=== PATIENT | female | born 1935 | race Caucasian/White ===

== ENCOUNTER 2018-12-26 17:55 | Inpatient (IN) ==
--- NOTE | 2018-12-26 18:40 | ED ---
HPI General Chief complaint: Shortness of Breath/Dyspnea Stated complaint: Swollen Feet/SOB/Diarrhea Time Seen by Provider: 12/26/18 18:25 History of Present Illness HPI narrative: 83-year-old female with history of atrial fibrillation, diabetes , peripheral neuropathy, chronic UTIs, takes ciprofloxacin 250 mg chronically, presents with her mother for evaluation. The patient and daughter report that all day today the patient has been fatigued, lethargic, just sleeping for most of the day. She has been having some dyspnea. She reports that she has chronic neuropathy in her feet and it seems to be worse today as well. Her daughter is concerned that she could have UTI. She reports that she has had 3 loose stools today but no profuse diarrhea. She is denying headache, blurred vision, dizziness, lightheadedness, nausea, vomiting, chest pain, cough, congestion, flank pain, objective fevers, myalgias, palpitations. She follows with the [facility]. No other complaints at this time. Related Data Home Medications Medication Instructions Recorded Confirmed alendronate 70 mg PO QWEEK 12/26/18 12/26/18 aspirin [Aspir-Low] 81 mg PO DAILY 12/26/18 12/26/18 atorvastatin 40 mg PO DAILY 12/26/18 12/26/18 cholecalciferol (vitamin D3) 5,000 unit PO DAILY 12/26/18 12/26/18 [Vitamin D3] ciprofloxacin HCl 250 mg PO DAILY 12/26/18 12/26/18 digoxin 0.125 mg PO DAILY 12/26/18 12/26/18 ferrous sulfate 325 mg PO DAILY 12/26/18 12/26/18 furosemide 20 mg PO DAILY 12/26/18 12/26/18 gabapentin 800 mg PO BID 12/26/18 12/26/18 leflunomide 20 mg PO DAILY 12/26/18 12/26/18 levothyroxine 150 mcg PO DAILY 12/26/18 12/26/18 losartan 25 mg PO DAILY 12/26/18 12/26/18 metformin 500 mg PO BID 12/26/18 12/26/18 metoprolol succinate 25 mg PO DAILY 12/26/18 12/26/18 omeprazole 40 mg PO DAILY 12/26/18 12/26/18 oxybutynin chloride 5 mg PO DAILY 12/26/18 12/26/18 prednisone 5 mg PO DAILY 12/26/18 12/26/18 ranitidine HCl 150 mg PO DAILY 12/26/18 12/26/18 temazepam 15 mg PO HS PRN 12/26/18 12/26/18 warfarin 0.5 mg PO DAILY 12/26/18 12/26/18 warfarin 3 mg PO DAILY 12/26/18 12/26/18 Allergies Allergy/AdvReac Type Severity Reaction Status Date / Time ketorolac Allergy Severe Hives Verified 12/27/18 00:55 piperacillin Allergy Severe Anaphylaxis Verified 12/27/18 00:55 tazobactam Allergy Severe Anaphylaxis Verified 12/27/18 00:55 MRI PRECAUTION AdvReac Severe BLADDER Uncoded 03/07/14 12:12 STIM - SEE COMMENT Review of Systems ROS: all other systems reviewed are negative [facility] Medical History Medical History Atrial fibrillation (Acute) CHF (congestive heart failure) (Acute) Chronic UTI (Acute) Diabetes mellitus, type 2 (Acute) GERD (gastroesophageal reflux disease) (Acute) History of hysterectomy (Acute) Hypertension (Acute) Hypothyroidism (Acute) Myocardial infarct (Acute) Neuropathy (Acute) Surgical History Surgical History H/O cardiac catheterization (Acute) History of appendectomy (Acute) History of tonsillectomy (Acute) Hx of heart artery stent (Acute) Status post implantation of urinary electronic stimulator device (Acute) Family History Family History Other Family history unknown Social History Social History Smoking Status: Former smoker How Often Do You Have a Drink Containing Alcohol: Never Recent Travel in [facility] within the Last 8 Weeks: No Recent Out of Country Travel within the Last 8 Weeks: No Exam Narrative Exam Narrative: GENERAL: Pleasant well-developed well-nourished female no acute distress answering questions appropriately. Alert and oriented x3. SKIN: Warm and dry. There is a little of nonspecific skin redness noted to the pretibial regions bilaterally. No erythema or petechiae or wheals or open wounds. HEAD: Atraumatic. Normocephalic. EYES: Pupils equal and round. No scleral icterus. No injection or drainage. ENT: No nasal bleeding or discharge. Mucous membranes pink and moist. NECK: Trachea midline. No JVD. CARDIOVASCULAR: Regular rate and rhythm. No murmur appreciated. RESPIRATORY: No accessory muscle use. Clear to auscultation. Breath sounds equal bilaterally. GASTROINTESTINAL: Abdomen soft, non-tender, nondistended. Hepatic and splenic margins not palpable. MUSCULOSKELETAL: No obvious deformities. No clubbing. No cyanosis. No edema. NEUROLOGICAL: Awake and alert. No obvious cranial nerve deficits. Motor grossly within normal limits. Normal speech. Course Initial Documented Vital Signs Temperature 97.3 F L 12/26/18 18:08 Pulse Rate 102 H 12/26/18 18:08 Respiratory Rate 18 12/26/18 18:08 Blood Pressure 122/56 L 12/26/18 18:08 Pulse Oximetry 97 12/26/18 18:08 Last Documented Vital Signs Temperature 97.3 F L 12/26/18 18:08 Pulse Rate 80 12/26/18 22:03 Respiratory Rate 18 12/26/18 22:03 Blood Pressure 174/78 H 12/26/18 22:03 Pulse Oximetry 94 L 12/26/18 22:03 Medical Decision Making AUDELIA Attestation AUDELIA supervised visit: Yes Attestation: I, Dr. Woodard, have reviewed the advance practice practitioner's documentation and am in agreement, met with the patient face to face, made the diagnosis, and the medical decision making was done by me. The patient was initially evaluated by nathalia William PA. Please see their complete history and physical. *My assessment and Findings: The patient presents with a history of feeling poorly throughout the day today. She reports having generalized weakness and lethargy that began today. She reports having generalized body aches. She reports that over the last week she has had some head congestion and clear rhinorrhea. She reports that she has been using a nasal spray to try to relieve the congestion. She denies having any chest congestion or cough. She reports that earlier today she did have some chest pressure and shortness of breath that has now resolved. Her daughter reports that she also noted that she had some lower extremity edema that was new today and some redness of her legs which seems to be resolving since she has been in the emergency department. She denies having any itching associated with this redness. She denies having any fevers. On review of systems, the patient's examination is remarkable for patchy areas of erythema of the skin of the lower extremities which is reportedly improving according to her daughter. The patient's left leg is slightly larger than the right, which according to the daughter is new. The patient is on Coumadin related to a history of atrial fibrillation. She denies any prior history of DVT. She reports that in 2001 she did have a myocardial infarction. She reports that she has had stents placed in the past, however she is unsure how many. She cannot recall when she last had a stress test. During the course of the patient's emergency department visit, the patient's history, examination, and differential diagnosis were reviewed with the patient. The patient was placed on a alarm security or surveillance monitor with oximetry and frequent blood pressure monitoring. The patient had IV access obtained and blood work sent for analysis. The patient was initially provided normal saline IV fluids. The patient's diagnostic studies were reviewed and remarkable for a white count of 18, hemoglobin 12.4, platelets 285 with 79.2 neutrophils, PT PTT within normal limits, INR is only 1.1. Chemistry is remarkable for a lactic acid within normal limits at 1.8, ALT 56, cardiac enzymes within normal limits. Digoxin level is 0.9. The patient's chest x-ray reveals cardiomegaly with minimal basilar atelectasis or scarring. No other acute abnormality. Urinalysis revealed turbid urine, 100 protein, trace ketones, small blood, positive nitrate, large leukocyte esterase, 7 RBCs, many white blood cell clumps , innumerable WBCs, moderate bacteria, culture indicated. The patient was given Rocephin 1 g IV. An ultrasound of the left lower extremity revealed no evidence of DVT. CTA to rule out PE showed no evidence of pulmonary embolism, moderate to severe coronary artery calcifications. No lung consolidation, minimal basilar atelectasis or scarring. The patient's results were discussed with the patient, including the plan of care. I explained that further testing and/ or monitoring is indicated based on the patient's history, examination, and/ or laboratory findings. Therefore, I recommended admission for additional evaluation. The patient expressed understanding and was agreeable with this plan. The patient was admitted to the hospital in guarded condition and sent to a bed under the care of the [facility] service. MDM Narrative Medical decision making narrative: The patient was placed on ECG monitoring pulse oximetry. IV established, lab work, chest x-ray, urinalysis obtained. Lab work is notable for WBC count of 18 with 12% band neutrophils a BUN of 21, creatinine 1.32, GFR 39, glucose 162. Lactic acid is 1.8. Chest x-ray revealed cardiomegaly. The patient was cautiously hydrated with 500 mL of normal saline. Urinalysis is consistent with UTI, IV Rocephin initiated. The patient is allergic to Pipracil and blood per chart review she has had Rocephin in the past. The patient's INR is 1.1, subtherapeutic, she is here with dyspnea and she is tachycardic and therefore a CT pulmonary antrum was obtained revealing no evidence of pulmonary embolism. Left lower extremity ultrasound was also obtained revealing no evidence of DVT. The patient does meet sepsis criteria with urinary source. She will be admitted for further treatment. Medical Screen Exam Complete: Yes Emergency Medical Condition: Yes Differential Diagnosis Differential Diagnosis: UTI, sepsis, pneumonia, dehydration, failure to thrive, electrolyte abnormality Lab Data Result diagrams: 12/26/18 18:51 12/26/18 18:51 Lab Results 12/26/18 12/26/18 12/26/18 Range/Units 18:51 18:51 18:51 WBC 18.0 H (4.0-11.0) th/mm3 RBC 4.33 (4.00-5.30) mil/mm3 Hgb 12.4 (11.6-15.3) gm/dL Hct 38.0 (35.0-46.0) % MCV 87.6 (80.0-100.0) fL MCH 28.7 (27.0-34.0) pg MCHC 32.8 (32.0-36.0) % RDW 20.9 H (11.6-17.2) % Plt Count 285 (150-450) th/mm3 MPV 11.1 H (7.0-11.0) fL Prelim Diff (Auto) Slide review pending Neut % (Auto) 79.2 H (16.0-70.0) % Lymph % (Auto) 10.8 (9.0-44.0) % Cross % (Auto) 7.3 (0.0-8.0) % Eos % (Auto) 1.4 (0.0-4.0) % Baso % (Auto) 1.3 (0.0-2.0) % Neut # (Auto) 14.3 H (1.8-7.7) th/mm3 Lymph # (Auto) 2.0 (1.0-4.8) th/mm3 Cross # (Auto) 1.3 H (0.0-0.9) th/mm3 Eos # (Auto) 0.2 (0.0-0.4) th/mm3 Baso # (Auto) 0.2 (0.0-0.2) th/mm3 WBC Differential Manual diff final Seg Neuts % (Manual) 65 (16-70) % Band Neuts % (Manual) 12 H (0-6) % Lymphocytes % (Manual) 12 (9-44) % Monocytes % (Manual) 11 H (0-8) % Abs Neuts (Manual) 13.9 H (1.8-7.7) th/mm3 Differential Comment . Platelet Estimate Normal (Normal) Platelet Morphology Normal (Normal) PT 10.7 (9.8-11.6) sec INR 1.1 Ratio APTT 25.2 (23.4-31.7) sec Sodium 139 (136-145) meq/L Potassium 3.5 (3.5-5.1) meq/L Chloride 104 (98-107) meq/L Carbon Dioxide 27.8 (21.0-32.0) meq/L Anion Gap 7 (5-15) meq/L BUN 21 H (7-18) mg/dL Creatinine 1.32 H (0.50-1.00) mg/dL Estimated GFR 39 L (>89) mL/min Random Glucose 162 H (74-106) mg/dL Lactic Acid (0.4-2.0) mmol/L Calcium 9.2 (8.5-10.1) mg/dL Magnesium 1.7 (1.5-2.5) mg/dL Total Bilirubin 0.6 (0.2-1.0) mg/dL AST 26 (15-37) U/L ALT 56 H (10-53) U/L Alkaline Phosphatase 52 (45-117) U/L Total Creatine Kinase 42 (26-192) U/L Troponin I Less than 0.02 L (0.02-0.05) ng/mL B-Natriuretic Peptide (0-100) pg/mL Total Protein 7.2 (6.4-8.2) g/dL Albumin 3.0 L (3.4-5.0) g/dL Urine Color (Yellw/Straw) Urine Clarity (Clear) Urine pH (5.0-8.5) Ur Specific Lutz (1.002-1.035) Urine Protein (Neg-Trace) mg/dL Urine Glucose (UA) (Negative) mg/dL Urine Ketones (Negative) mg/dL Urine Occult Blood (Negative) Urine Nitrate (Negative) Urine Bilirubin (Negative) Urine Urobilinogen (Less than 2) mg/dL Ur Leukocyte Esterase (Negative) Urine RBC (0-3) /hpf Urine WBC (0-5) /hpf Urine WBC Clumps (None) Urine Bacteria (None) /hpf Micro UA Comment Ur Microscopic Review Urine Culture Comments Digoxin 0.9 (0.8-2.0) ng/mL 12/26/18 12/26/18 12/26/18 Range/Units 18:51 18:51 19:04 WBC (4.0-11.0) th/mm3 RBC (4.00-5.30) mil/mm3 Hgb (11.6-15.3) gm/dL Hct (35.0-46.0) % MCV (80.0-100.0) fL MCH (27.0-34.0) pg MCHC (32.0-36.0) % RDW (11.6-17.2) % Plt Count (150-450) th/mm3 MPV (7.0-11.0) fL Prelim Diff (Auto) Neut % (Auto) (16.0-70.0) % Lymph % (Auto) (9.0-44.0) % Cross % (Auto) (0.0-8.0) % Eos % (Auto) (0.0-4.0) % Baso % (Auto) (0.0-2.0) % Neut # (Auto) (1.8-7.7) th/mm3 Lymph # (Auto) (1.0-4.8) th/mm3 Cross # (Auto) (0.0-0.9) th/mm3 Eos # (Auto) (0.0-0.4) th/mm3 Baso # (Auto) (0.0-0.2) th/mm3 WBC Differential Seg Neuts % (Manual) (16-70) % Band Neuts % (Manual) (0-6) % Lymphocytes % (Manual) (9-44) % Monocytes % (Manual) (0-8) % Abs Neuts (Manual) (1.8-7.7) th/mm3 Differential Comment Platelet Estimate (Normal) Platelet Morphology (Normal) PT (9.8-11.6) sec INR Ratio APTT (23.4-31.7) sec Sodium (136-145) meq/L Potassium (3.5-5.1) meq/L Chloride (98-107) meq/L Carbon Dioxide (21.0-32.0) meq/L Anion Gap (5-15) meq/L BUN (7-18) mg/dL Creatinine (0.50-1.00) mg/dL Estimated GFR (>89) mL/min Random Glucose (74-106) mg/dL Lactic Acid 1.8 (0.4-2.0) mmol/L Calcium (8.5-10.1) mg/dL Magnesium (1.5-2.5) mg/dL Total Bilirubin (0.2-1.0) mg/dL AST (15-37) U/L ALT (10-53) U/L Alkaline Phosphatase (45-117) U/L Total Creatine Kinase (26-192) U/L Troponin I (0.02-0.05) ng/mL B-Natriuretic Peptide 144 H (0-100) pg/mL Total Protein (6.4-8.2) g/dL Albumin (3.4-5.0) g/dL Urine Color Mayra (Yellw/Straw) Urine Clarity Turbid H (Clear) Urine pH 5.0 (5.0-8.5) Ur Specific Lutz 1.016 (1.002-1.035) Urine Protein 100 H (Neg-Trace) mg/dL Urine Glucose (UA) Negative (Negative) mg/dL Urine Ketones Trace H (Negative) mg/dL Urine Occult Blood Small H (Negative) Urine Nitrate Positive H (Negative) Urine Bilirubin Negative (Negative) Urine Urobilinogen Less than 2 (Less than 2) mg/dL Ur Leukocyte Esterase Large H (Negative) Urine RBC 7 H (0-3) /hpf Urine WBC (0-5) /hpf Urine WBC Clumps Many H (None) Urine Bacteria Moderate H (None) /hpf Micro UA Comment Culture indicated Ur Microscopic Review Not Reportable Urine Culture Comments Culture indicated Digoxin (0.8-2.0) ng/mL Imaging Data Radiologist's impression: Chest X-Ray 12/26/18 18:36 CONCLUSION: Cardiomegaly with minimal basilar atelectasis or scarring. Venous Doppler Study 12/26/18 19:49 CONCLUSION: No evidence of left lower extremity DVT. Chest CTA 12/26/18 20:28 CONCLUSION: 1. Negative for pulmonary embolic disease. Moderate to severe coronary artery calcifications. No lung consolidation. Minimal basilar atelectasis or scarring. ECG Data Attestation: I personally reviewed and interpreted this ECG as follows: Interpretation: The patient had an EKG done on arrival. The patient's EKG reveals a sinus rhythm heart rate of 91, QRS duration 90 ms, QTC [address] segment depression, T wave abnormalities, most prominent in leads I, II, V3, V4, V5, and V6. Discharge Plan Discharge Disposition Patient Disposition: ED Admit(ED Internal Use Only) Discharge Condition Condition: Stable Discharge Order Discharge Orders: ED Use Only Admit Order (Routine); Ordered 12/26/18 Ordered By: Stewart Carlson Discharge Details Diagnosis: UTI (urinary tract infection), Sepsis Physicians Team ED Provider: Lawanda Woodard ED Midlevel Provider: Stewart Carlson Primary Care Provider: UNKNOWN, Attending Provider: Linda Quesada Other Providers: [employer] Status ED Status: Admitted Patient
[2018-12-26 19:08] LABS: Baso # (Auto) 0.2 th/mm3 (0.0-0.2); Baso % (Auto) 1.3 % (0.0-2.0); Eos # (Auto) 0.2 th/mm3 (0.0-0.4); Eos % (Auto) 1.4 % (0.0-4.0); Hemoglobin 12.4 gm/dL (11.6-15.3); Lymph % (Auto) 10.8 % (9.0-44.0); Mean Corpuscular HGB Conc 32.8 % (32.0-36.0); Mean Corpuscular Hemoglobin 28.7 pg (27.0-34.0); Mean Corpuscular Volume 87.6 fL (80.0-100.0); Mean Platelet Volume 11.1 fL (7.0-11.0); Mono # (Auto) 1.3 th/mm3 (0.0-0.9); Mono % (Auto) 7.3 % (0.0-8.0); Neut # (Auto) 14.3 th/mm3 (1.8-7.7); Neut % (Auto) 79.2 % (16.0-70.0); Platelet Count 285 th/mm3 (150-450); Red Blood Count 4.33 mil/mm3 (4.00-5.30); Red Cell Distribution Width 20.9 % (11.6-17.2)
--- NOTE | 2018-12-26 19:10 | XR ---
EXAM DATE: 12/26/2018 6:51 PM EST AGE/SEX: 83 years / Female INDICATIONS: Fever CLINICAL DATA: This is the patient's initial encounter. Patient reports that signs and symptoms have been present for 1 day and indicates a pain score of 0/10. MEDICAL/SURGICAL HISTORY: Hypertension. Diabetes mellitus type II. CABG. Carotid stent. COMPARISON: [facility], XR CHEST PA AND LAT, 11/25/2016. . FINDINGS: Heart size enlarged. Minimal basilar atelectasis. No significant effusion. No pneumothorax. Atheroscl erotic and tortuous aorta. CONCLUSION: Cardiomegaly with minimal basilar atelectasis or scarring. Electronically signed by: Prashant Ramirez MD Board Certified Radiologist 12/26/2018 7:08 PM EST
[2018-12-26 19:21] LABS: Activated Partial Thrombo Time 25.2 sec (23.4-31.7); INR 1.1 Ratio; Prothrombin Time 10.7 sec (9.8-11.6)
[2018-12-26 19:50] LABS: Alanine Aminotransferase 56 U/L (10-53)
[2018-12-26 20:04] LABS: Alkaline Phosphatase 52 U/L (45-117); Digoxin 0.9 ng/mL (0.8-2.0); Total Protein 7.2 g/dL (6.4-8.2)
[2018-12-26 20:13] LABS: Creatine Kinase 42 U/L (26-192)
[2018-12-26 20:14] LABS: Anion Gap 7 meq/L (5-15); Aspartate Aminotransferase 26 U/L (15-37); Blood Urea Nitrogen 21 mg/dL (7-18); Calcium 9.2 mg/dL (8.5-10.1); Carbon Dioxide 27.8 meq/L (21.0-32.0); Chloride 104 meq/L (98-107); Glomerular Filtration Rate 39 mL/min (>89); Glucose,Random 162 mg/dL (74-106); Lymphocytes 12 % (9-44); Magnesium 1.7 mg/dL (1.5-2.5); Monocytes 11 % (0-8); Platelet Estimate Normal (Normal); Platelet Morphology Normal (Normal); Potassium 3.5 meq/L (3.5-5.1); Sodium 139 meq/L (136-145)
--- NOTE | 2018-12-26 20:53 | US ---
EXAM DATE: 12/26/2018 8:49 PM EST AGE/SEX: 83 years / Female INDICATIONS: Left leg pain. CLINICAL DATA: This is the patient's subsequent encounter. Patient reports that signs and symptoms h ave been present for 1 week and indicates a pain score of 2/10. MEDICAL/SURGICAL HISTORY: Congestive heart failure. Diabetes. Gastroesophageal reflux disease . Hypothyroidism. Myocardial infarct. Neuropathy. Hysterectomy. Hemorrhoidectomy. Appendectomy. Tonsillectomy. Heart artery stent. Cardiac Catheterization. COMPARISON: No prior exams available for comparison. TECHNIQUE: Venous ultrasound of both lower extremities was performed from the inguinal ligament to t he proximal calf. Real-time, color Doppler and spectral tracing, compression and augmentation techni ques were used. FINDINGS: Normal compression of the deep venous system from the inguinal region to the proximal calf . No echogenic clot is seen. Normal response of the venous system to augmentation and respiration. CONCLUSION: No evidence of left lower extremity DVT. Electronically signed by: Lenny Jay MD Board Certified Radiologist 12/26/2018 8:52 PM EST
[2018-12-26] MEDS ORDERED: Sodium Chlor 0.9% Inj 500 ML IV.SIG SCH (21:00)
[2018-12-26 21:01] LABS: Bacteria,Urine Moderate /hpf; Bilirubin,Urine Negative (Negative); Clarity,Urine Turbid (Clear); Color,Urine Amber (Yellw/Straw); Glucose,Urine (UA) Negative (Negative); Leukocyte Esterase,Urine Large (Negative); Nitrite,Urine Positive (Negative); Specific Gravity,Urine 1.016 (1.002-1.035)
--- NOTE | 2018-12-26 21:34 | CT ---
EXAM DATE: 12/26/2018 9:26 PM EST AGE/SEX: 83 years / Female INDICATIONS: Shortness of breath. CLINICAL DATA: This is the patient's initial encounter. Patient reports that signs and symptoms have been present for 1 day and indicates a pain score of 0/10. MEDICAL/SURGICAL HISTORY: Congestive heart failure. Diabetes. Myocardial infarction. Coronary art gabriela stent. RADIATION DOSE: 12.45 CTDI (mGy) COMPARISON: No prior exams available for comparison. TECHNIQUE: Volumetric scanning was performed using a multi-row detector CT scanner during bolus infu merna of 50 ml Visipaque 320 (iodixanol) nonionic water-soluble contrast as a single exam dose. The d janet was post processed with a variety of visualization algorithms including full volume maximum inten sity projection and sliding thin slab reformation. Using automated exposure control and adjustment o f the mA and/or kV according to patient size, radiation dose was kept as low as reasonably achievable to obtain optimal diagnostic quality images. DICOM format image data is available electronically fo r review and comparison. FINDINGS: No filling defects identified to suggest pulmonary embolic disease. Minimal basilar lung scarring. No pleural or pericardial effusion. Severe coronary calcifications. No acute bony abnormalities. CONCLUSION: 1. Negative for pulmonary embolic disease. Moderate to severe coronary artery calcifications. No jorge a g consolidation. Minimal basilar atelectasis or scarring. Electronically signed by: Prashant Ramirez MD Board Certified Radiologist 12/26/2018 9:33 PM EST
[2018-12-27] MEDS ORDERED: Bisacodyl 10 MG Supp RECTAL PRN (00:07)
[2018-12-27] MEDS ORDERED: Dextrose 50% in Water 50 ML Vial IV.PUSH PRN (00:07)
[2018-12-27] MEDS ORDERED: Warfarin Consult Pharmacy OTHER PRN (00:11)
--- NOTE | 2018-12-27 00:18 | P.HPIM ---
History of Present Illness Primary Care Physician: UNKNOWN 83-year-old female with a past medical history significant for atrial fibrillation anticoagulated on Coumadin, hypertension, hyperlipidemia, diabetes mellitus, neuropathy, GERD, hypothyroidism and chronic UTI for which she is medicated with Cipro 250 mg daily since June presents to the emergency department for the evaluation of lethargy and generalized malaise. Her daughter is bedside and provides the history. According to the daughter, the patient was sleeping all day and stated that she "did not feel well." The daughter recognized the symptoms as typical of the patient's urinary tract infections and as the patient has a history of urosepsis she brought her to the emergency department for further evaluation. The patient denies any pain. No chest pain or shortness of breath. No abdominal pain. No nausea/vomiting/ diarrhea. No focal neurologic deficits. No fever/chills. Inpatient Certification Inpatient Certification: I certify that the inpatient services were ordered in accordance with Medicare regulations governing the order. This includes certification that hospital inpatient services are reasonable and necessary and in the case of services not specified as inpatient-only under 42 CFR 419.22(n), that they are appropriately provided as inpatient services in accordance to with the 2-midnight benchmark under 43 CFR 412.3(e) Estimated Total Length of Stay (Days): 2 Plans for Post Hospital Care: Not yet determined Review of Systems Review of Systems: all other systems reviewed are negative [facility] Medical History Medical History Atrial fibrillation (Acute) CHF (congestive heart failure) (Acute) Chronic UTI (Acute) Diabetes mellitus, type 2 (Acute) GERD (gastroesophageal reflux disease) (Acute) History of hysterectomy (Acute) Hypertension (Acute) Hypothyroidism (Acute) Myocardial infarct (Acute) Neuropathy (Acute) Surgical History Surgical History H/O cardiac catheterization (Acute) History of appendectomy (Acute) History of tonsillectomy (Acute) Hx of heart artery stent (Acute) Status post implantation of urinary electronic stimulator device (Acute) Family History Family History Other Family history unknown Social History Social History Smoking Status: Former smoker How Often Do You Have a Drink Containing Alcohol: Never Recent Travel in [facility] within the Last 8 Weeks: No Recent Out of Country Travel within the Last 8 Weeks: No Immunization History Tetanus Immunization: Unsure Medications and Allergies Allergies Allergy/AdvReac Type Severity Reaction Status Date / Time ketorolac Allergy Severe Hives Unverified 06/29/17 22:55 piperacillin Allergy Severe Unverified 06/29/17 22:55 tazobactam Allergy Severe Unverified 06/29/17 22:55 MRI PRECAUTION AdvReac Severe BLADDER Uncoded 03/07/14 12:12 STIM - SEE COMMENT Home Medications Medication Instructions Recorded Confirmed Type alendronate 70 mg PO QWEEK 12/26/18 12/26/18 History aspirin [Aspir-Low] 81 mg PO DAILY 12/26/18 12/26/18 History atorvastatin 40 mg PO DAILY 12/26/18 12/26/18 History cholecalciferol (vitamin D3) 5,000 unit PO DAILY 12/26/18 12/26/18 History [Vitamin D3] ciprofloxacin HCl 250 mg PO DAILY 12/26/18 12/26/18 History digoxin 0.125 mg PO DAILY 12/26/18 12/26/18 History ferrous sulfate 325 mg PO DAILY 12/26/18 12/26/18 History furosemide 20 mg PO DAILY 12/26/18 12/26/18 History gabapentin 800 mg PO BID 12/26/18 12/26/18 History leflunomide 20 mg PO DAILY 12/26/18 12/26/18 History levothyroxine 150 mcg PO DAILY 12/26/18 12/26/18 History losartan 25 mg PO DAILY 12/26/18 12/26/18 History metformin 500 mg PO BID 12/26/18 12/26/18 History metoprolol succinate 25 mg PO DAILY 12/26/18 12/26/18 History omeprazole 40 mg PO DAILY 12/26/18 12/26/18 History oxybutynin chloride 5 mg PO DAILY 12/26/18 12/26/18 History prednisone 5 mg PO DAILY 12/26/18 12/26/18 History ranitidine HCl 150 mg PO DAILY 12/26/18 12/26/18 History temazepam 15 mg PO HS PRN 12/26/18 12/26/18 History warfarin 0.5 mg PO DAILY 12/26/18 12/26/18 History warfarin 3 mg PO DAILY 12/26/18 12/26/18 History Active Medications: Active Medications Acetaminophen (Tylenol) 650 mg PO Q4H PRN PRN Reason: Temp > 100.4 Al Hydroxide/Mg Hydroxide (Milk Of Magnesia Liq) 30 ml PO Q12H PRN PRN Reason: Mild Constipation Aspirin (Ecotrin) 81 mg PO DAILY [facility] Atorvastatin Calcium (Lipitor) 40 mg PO DAILY [facility] Bisacodyl (Dulcolax Supp) 10 mg RECTAL DAILY PRN PRN Reason: SEVERE CONSITIPATION Dextrose (D50w Vial) 50 ml IV.PUSH UNSCH PRN PRN Reason: PER HYPOGLYCEMIA PROTOCOL Digoxin (Lanoxin) 125 mcg PO DAILY [facility] Glucagon (Glucagon Inj) 1 mg OTHER PRN PRN PRN Reason: for Hypoglycemia Protocol Heparin Sodium (Porcine) (Heparin Inj) 5,000 units SQ Q12H [facility] Ceftriaxone Sodium 1,000 mg/ (Sodium Chloride) 100 mls @ 200 mls/hr IV.SIG Q24H SUMIT Sodium Chloride (Ns Inj) 1,000 mls @ 70 mls/hr IV.CONT .[id number] [facility] Insulin Aspart (Novolog Insulin Correctional Sugar Inj) 0 unit SQ ACHS AND 3AM SUMIT; Protocol Lactulose (Lactulose Liq) 30 ml PO DAILY PRN PRN Reason: SEVERE CONSITIPATION Ondansetron HCl (Zofran Inj) 4 mg IV.PUSH Q6H PRN PRN Reason: NAUSEA OR VOMITING Senna/Docusate Sodium (Valentina-Colace) 1 tab PO BID [facility] Sennosides (Senokot) 17.2 mg PO Q12H PRN PRN Reason: Moderate Constipation Sodium Chloride (Ns Flush) 2 ml IV.FLUSH BID [facility] Sodium Chloride (Ns Flush) 2 ml IV.FLUSH PRN PRN PRN Reason: FLUSH AFTER USING IV ACCESS Physical Exam Vital signs: Vital Signs 12/26/18 18:08 12/26/18 19:04 12/26/18 20:05 Temperature 97.3 F L Pulse Rate 102 H 99 H Respiratory Rate 18 18 20 Blood Pressure 122/56 L 154/65 H Pulse Oximetry 97 95 12/26/18 22:03 Temperature Pulse Rate 80 Respiratory Rate 18 Blood Pressure 174/78 H Pulse Oximetry 94 L Intake & Output 12/26/18 12/26/18 12/27/18 06:59 18:59 06:59 Intake Total 600 / 600 Balance 600 / 600 Weight 68.039 kg Intake: IV 600 / 600 NS Inj 500 ML @ 1000 mls/hr IV. 500 / 500 SIG BOLUS SUMIT Rx#:[id number] Rocephin Inj 1,000 MG In NS Inj 100 / 100 100 ML @ 200 mls/hr IV.SIG ONCE ONE Rx#:[id number] Narrative: Gen.: No acute distress Head: Normocephalic. Atraumatic. EENT: Pupils equal round and reactive to light. Nose without drainage. Airway intact. Throat without injection. Cardiovascular: Regular rate and rhythm. No murmurs, rubs or gallops. Respiratory: Lungs clear to auscultation bilaterally. No wheezes or rhonchi. Abdomen: Soft, nontender, nondistended. No peritoneal signs. Musculoskeletal: No gross deformities. No edema. Skin: No obvious rashes or erythema. Neuro: Sensory and motor grossly intact. Cranial nerves II through XII grossly intact. Results Labs CBC & Chem 7: 12/26/18 18:51 12/26/18 18:51 Imaging Impressions Chest X-Ray 12/26/18 18:36 CONCLUSION: Cardiomegaly with minimal basilar atelectasis or scarring. Venous Doppler Study 12/26/18 19:49 CONCLUSION: No evidence of left lower extremity DVT. Chest CTA 12/26/18 20:28 CONCLUSION: 1. Negative for pulmonary embolic disease. Moderate to severe coronary artery calcifications. No lung consolidation. Minimal basilar atelectasis or scarring. Caprini VTE Risk Assessment Caprini VTE Risk Assessment: Moderate/High Risk (score >= 2) Caprini Risk Assessment Model: Point Value = 1 Point Value = 2 Point Value = 3 Point Value = 5 Age 41-60 Minor surgery BMI > 25 kg/m2 Swollen legs Varicose veins or History of unexplained or recurrent spontaneous Oral contraceptives or hormone replacement Sepsis (< 1 month) Serious lung disease, including pneumonia (< 1 month) Abnormal pulmonary function Acute myocardial infarction Congestive heart failure (< 1 month) History of inflammatory bowel disease Medical patient at bed rest Age 61-74 Arthroscopic surgery Major open surgery (> 45 min) Laparoscopic surgery (> 45 min) Malignancy Confined to bed (> 72 hours) Immobilizing plaster cast Central venous access Age >= 75 History of VTE Family history of VTE Factor V Leiden Prothrombin [id number] Lupus anticoagulant Anticardiolipin antibodies Elevated serum homocysteine Heparin-induced thrombocytopenia Other congenital or acquired thrombophilia Stroke (< 1 month) Elective arthroplasty Hip, pelvis, or leg fracture Acute spinal cord injury (< 1 month) Prophylaxis Regimen: Total Risk Factor Score Risk Level Prophylaxis Regimen 0-1 Low Early ambulation 2 Moderate Order ONE of the following: *Sequential Compression Device (SCD) *Heparin 5000 units SQ BID 3-4 Higher Order ONE of the following medications: *Heparin 5000 units SQ TID *Enoxaparin/Lovenox 40 mg SQ daily (WT < 150 kg, CrCl > 30 mL/min) *Enoxaparin/Lovenox 30 mg SQ daily (WT < 150 kg, CrCl > 10-29 mL/min) *Enoxaparin/Lovenox 30 mg SQ BID (WT < 150 kg, CrCl > 30 mL/min) AND/OR *Sequential Compression Device (SCD) 5 or more Highest Order ONE of the following medications: *Heparin 5000 units SQ TID (Preferred with Epidurals) *Enoxaparin/Lovenox 40 mg SQ daily (WT < 150 kg, CrCl > 30 mL/min) *Enoxaparin/Lovenox 30 mg SQ daily (WT < 150 kg, CrCl > 10-29 mL/min) *Enoxaparin/Lovenox 30 mg SQ BID (WT < 150 kg, CrCl > 30 mL/min) AND *Sequential Compression Device (SCD) Assessment and Plan Plan Assessment/plan: 1. Urosepsis Patient with leukocytosis, tachycardia Blood cultures pending UA consistent with urinary tract infection Patient recently hospitalized at [facility] where she was treated for urosepsis with Rocephin, has been on 250 mg of Cipro daily for chronic UTI Urine culture pending Rocephin 2. Acute kidney injury Creatinine 1.32, baseline unknown Holding home kimmy IV fluid hydration Monitor renal function 3. Atrial fibrillation/subtherapeutic on Coumadin Continue home metoprolol, digoxin INR 1.1 Pharmacy consulted to assist with Coumadin dosing 4. Hypertension/hyperlipidemia/GERD/hypothyroidism/neuropathy Continue home medications FEN Heart healthy diet Electrolytes: Monitor and replete as needed NS at 70 cc/hour Heparin
[2018-12-27] MEDS: Sod Chloride 0.9% Inj 1,000 ML IV.CONT SCH ×3 (00:56→21:30)
[2018-12-27] MEDS: Insulin NovoLOG Aspart Correctional Sugar Inj SQ SCH ×5 (06:19→21:30)
[2018-12-27 07:28] LABS: Baso # (Auto) 0.1 th/mm3 (0.0-0.2); Baso % (Auto) 0.5 % (0.0-2.0); Eos # (Auto) 0.2 th/mm3 (0.0-0.4); Eos % (Auto) 0.9 % (0.0-4.0); Hematocrit 35.8 % (35.0-46.0); Hemoglobin 11.5 gm/dL (11.6-15.3); Lymph # (Auto) 1.4 th/mm3 (1.0-4.8); Lymph % (Auto) 7.9 % (9.0-44.0); Mean Corpuscular Hemoglobin 28.2 pg (27.0-34.0); Mean Corpuscular Volume 88.1 fL (80.0-100.0); Mean Platelet Volume 10.7 fL (7.0-11.0); Mono # (Auto) 1.1 th/mm3 (0.0-0.9); Mono % (Auto) 6.3 % (0.0-8.0); Neut # (Auto) 15.3 th/mm3 (1.8-7.7); Neut % (Auto) 84.4 % (16.0-70.0); Platelet Count 230 th/mm3 (150-450); Red Blood Count 4.06 mil/mm3 (4.00-5.30); Red Cell Distribution Width 21.2 % (11.6-17.2); White Blood Count 18.1 th/mm3 (4.0-11.0)
[2018-12-27] MEDS: Levothyroxine 150 MCG Tablet PO SCH (07:28)
[2018-12-27 07:39] LABS: Calcium 8.3 mg/dL (8.5-10.1); Carbon Dioxide 24.3 meq/L (21.0-32.0); Potassium 3.3 meq/L (3.5-5.1)
[2018-12-27] MEDS: Ferrous Sulfate 325 MG Tablet PO SCH (09:25)
[2018-12-27] MEDS: Digoxin 125 MCG Tablet PO SCH (09:25)
[2018-12-27] MEDS: Gabapentin 300 MG Capsule PO SCH ×2 (09:25→21:27)
[2018-12-27] MEDS: predniSONE 5 MG Tablet PO SCH (09:25)
[2018-12-27] MEDS: Heparin - SQ 10,000 UNITS/ML Vial SQ SCH ×2 (09:26→21:27)
[2018-12-27] MEDS: Senna/Docusate Sodium 8.6/50 MG Tablet PO SCH ×2 (09:26→21:28)
--- NOTE | 2018-12-27 12:33 | ECG ---
Date Performed: 12/26/2018 Time Performed: 19:52:16 PTAGE: 83 years EKG: POSSIBLE Sinus rhythm NONSPECIFIC ST & T-WAVE ABNORMALITY ABNORMAL RHYTHM ECG PREVIOUS TRACING : 03/09/2014 11.00 DOCTOR: Izzy Nunez Interpretating Date/Time 12/27/2018 12:28:16
[2018-12-27] MEDS: Tolterodine Tartrate LA 2 MG Capsule PO SCH (12:36)
--- NOTE | 2018-12-27 17:37 | P.PNIM ---
Subjective Interval history: 83-year-old female with history of atrial fibrillation on Coumadin brought in for worsening confusion and altered mental status. She was found to have a urinary tract infection, she has been chronically on ciprofloxacin for prevention, has recurrent urinary tract infections, related to urinary incontinence, she does have a bladder stimulator implant, and follows up with urogynecology plans for surgical intervention, bladder lift for ongoing incontinence and recurrent UTIs. Patient was admitted and started on IV Rocephin. Patient was seen and examined, case was discussed with patient and daughter at bedside, per daughter, patient is normally quite sharp and with it, and is still very confused from her baseline. Patient denies dizziness shortness of breath chest pain nausea vomiting or other symptoms, per nursing patient is having some loose stools malodorous, daughter states that that is very common with the IV Rocephin. But that the patient has never had C. difficile. Physical Exam Vital signs: Vital Signs 12/26/18 18:08 12/26/18 19:04 12/26/18 20:05 Temperature 97.3 F L Pulse Rate 102 H 99 H Respiratory Rate 18 18 20 Blood Pressure 122/56 L 154/65 H Pulse Oximetry 97 95 12/26/18 22:03 12/27/18 04:00 12/27/18 07:00 Temperature 97.8 F Pulse Rate 80 78 94 H Respiratory Rate 18 18 17 Blood Pressure 174/78 H 112/65 Pulse Oximetry 94 L 93 L 96 12/27/18 09:30 12/27/18 10:00 12/27/18 10:30 Temperature 97.8 F 97.5 F L Pulse Rate 89 83 Respiratory Rate 17 20 Blood Pressure 109/68 180/72 H 170/60 H Pulse Oximetry 98 94 L 12/27/18 14:40 Temperature 97.5 F L Pulse Rate 79 Respiratory Rate 24 Blood Pressure 148/63 H Pulse Oximetry 94 L Intake & Output 12/26/18 12/27/18 12/27/18 18:59 06:59 18:59 Intake Total 600 / 600 Balance 600 / 600 Weight 68.039 kg Intake: IV 600 / 600 NS Inj 500 ML @ 1000 mls/hr IV. 500 / 500 SIG BOLUS SUMIT Rx#:[id number] Rocephin Inj 1,000 MG In NS Inj 100 / 100 100 ML @ 200 mls/hr IV.SIG ONCE ONE Rx#:[id number] Narrative: Pleasant well-developed well-nourished 83-year-old white female appears frail Awake alert, follows commands, forgetful but appropriate heart S1-S2 regular 1/6 murmur Lungs clear bilateral with decreased breath sounds Abdomen soft nondistended positive bowel sounds Extremities no clubbing cyanosis no edema Results Labs CBC & Chem 7: 12/27/18 06:20 12/27/18 06:20 Labs: Microbiology 12/26/18 19:04 Clean Catch Urine Urine Culture - Preliminary Immature growth - reincubate 12/26/18 18:41 Blood - Peripheral Aerobic Blood Culture - Preliminary No growth in 1 day 12/26/18 18:41 Blood - Peripheral Anaerobic Blood Culture - Preliminary No growth in 1 day 12/26/18 18:51 Blood - Peripheral Aerobic Blood Culture - Preliminary No growth in 1 day 12/26/18 18:51 Blood - Peripheral Anaerobic Blood Culture - Preliminary No growth in 1 day 12/26/18 20:15 Nasal Wash Influenza Types A,B Antigen - Final Negative for FLU A and B antigen Infection due to influenza A or B cannot be ruled out since the antigen present in the sample may be below the detection limit of the test. Imaging Imaging: Impressions Chest X-Ray 12/26/18 18:36 CONCLUSION: Cardiomegaly with minimal basilar atelectasis or scarring. Venous Doppler Study 12/26/18 19:49 CONCLUSION: No evidence of left lower extremity DVT. Chest CTA 12/26/18 20:28 CONCLUSION: 1. Negative for pulmonary embolic disease. Moderate to severe coronary artery calcifications. No lung consolidation. Minimal basilar atelectasis or scarring. Assessment and Plan Plan UTI complicated and recurrent due to oab w urinary incontinence - failed stimulator in place, on detrol, and chronic suppressive abx cipro, cont iv rocephin, possibly consult ID pending cx results as high risk of mdro, will also monitor for fungal infection. ACUTE METABOLIC ENCEPHALOPATHY - due to UTI, cont current tx, supportive tx. improving. SEPSIS - w bandemia, better, but monitor wbc, still 18k AFIB CHRONIC on digoxin and chronic ac w coumadin HTN - fair control cont home meds DM niddm - on metformin will hold for now, cont iss, diabetic diet DYSLIPIDEMIA cont statin GERD cont ppi HYPOTHRYOIDISM - on synthroid PERIPERHAL NEUROPATHY multifactorial - cont gabapentin RA on leflunomide and chronic prednisone - chronically immunosuppressed further complicates risk re sepsis and infection HYPOKALEMIA - replace K, check mg. dvt prophylaxis - will give sc heparin till inr above 1.5, cont coumadin disposition - home when better, awaiting cx and wbc to trend down.
[2018-12-27 19:33] LABS: Prothrombin Time 10.2 sec (9.8-11.6)
[2018-12-28] MEDS: Insulin NovoLOG Aspart Correctional Sugar Inj SQ SCH ×5 (03:00→20:57)
[2018-12-28] MEDS: Sod Chloride 0.9% Inj 1,000 ML IV.CONT SCH ×2 (05:00→20:58)
[2018-12-28] MEDS: Levothyroxine 150 MCG Tablet PO SCH (05:22)
[2018-12-28] MEDS: Acetaminophen 325 MG Tablet PO PRN (05:25)
[2018-12-28] MEDS: Gabapentin 300 MG Capsule PO SCH ×2 (10:32→21:05)
[2018-12-28] MEDS: Digoxin 125 MCG Tablet PO SCH (10:32)
[2018-12-28] MEDS: Ferrous Sulfate 325 MG Tablet PO SCH (10:32)
[2018-12-28] MEDS: Senna/Docusate Sodium 8.6/50 MG Tablet PO SCH ×2 (10:32→20:59)
[2018-12-28] MEDS: predniSONE 5 MG Tablet PO SCH (10:32)
[2018-12-28] MEDS: Heparin - SQ 10,000 UNITS/ML Vial SQ SCH ×2 (10:34→21:05)
[2018-12-28] MEDS: Tolterodine Tartrate LA 2 MG Capsule PO SCH (10:39)
--- NOTE | 2018-12-28 11:10 | P.PNIM ---
Subjective Interval history: Reports she is feeling better today. She is awake and alert and sitting up in the bed. She is eating breakfast. Physical Exam Vital signs: Vital Signs 12/27/18 14:40 12/27/18 20:00 12/28/18 00:00 Temperature 97.5 F L 97.4 F L 97.9 F Pulse Rate 79 73 67 Respiratory Rate 24 18 16 Blood Pressure 148/63 H 141/59 H 147/65 H Pulse Oximetry 94 L 97 94 L 12/28/18 03:54 12/28/18 08:00 Temperature 97.7 F 96.2 F L Pulse Rate 73 77 Respiratory Rate 18 16 Blood Pressure 175/73 H 184/77 H Pulse Oximetry 94 L 93 L Intake & Output 12/27/18 12/28/18 12/28/18 18:59 06:59 18:59 Intake Total 1480 / 1480 400 / 400 Balance 1480 / 1480 400 / 400 Intake: IV 1000 / 1000 100 / 100 NS Inj 1,000 ML @ 70 mls/hr IV. 1000 / 1000 CONT .[id number] SUMIT Rx#:[id number] Rocephin Inj 1,000 MG In NS Inj 100 / 100 100 ML @ 200 mls/hr IV.SIG Q24H SUMIT Rx#:[id number] Oral 480 / 480 300 / 300 Other: # Voids 2 3 # Bowel Movements 1 Narrative: GENERAL: This is a well-nourished, well-developed patient, in no apparent distress. CARDIOVASCULAR: Normal rate and regular rhythm without murmurs, gallops, or rubs. RESPIRATORY: Good respiratory efforts. Breath sounds equal and clear to auscultation bilaterally. GASTROINTESTINAL: Abdomen soft, non-tender, non-distended. Normal active bowel sounds MUSCULOSKELETAL: Extremities without cyanosis, or edema. NEURO: Alert & Oriented x4 to person, place, time, situation. Moves all ext x4 PSYCH: Appropriate mood and affect. Results Labs CBC & Chem 7: 12/28/18 09:19 12/27/18 06:20 Labs: Microbiology 12/26/18 18:51 Blood - Peripheral Aerobic Blood Culture - Preliminary No growth in 2 days 12/26/18 18:51 Blood - Peripheral Anaerobic Blood Culture - Preliminary gram positive cocci 12/26/18 18:41 Blood - Peripheral Aerobic Blood Culture - Preliminary gram positive cocci 12/26/18 18:41 Blood - Peripheral Anaerobic Blood Culture - Preliminary gram positive cocci 12/26/18 19:04 Clean Catch Urine Urine Culture - Final 50-100,000 cfu/mL mixed amilcar (probable contaminants ) Assessment and Plan Plan 83-year-old female admitted with acute encephalopathy. Sepsis secondary to UTI. Sepsis secondary to UTI Gram-positive bacteremia Patient recently hospitalized at [facility] where she was treated for urosepsis with Rocephin, has been on 250 mg of Cipro daily for chronic UTI Add vancomycin. Consult infectious disease. Acute encephalopathy: Secondary to sepsis as above. - Mental status improving and is close to baseline. Acute kidney injury Renal functions improving IV fluid hydration Monitor renal function Atrial fibrillation/subtherapeutic on Coumadin Continue home metoprolol, digoxin INR subtherapeutic Pharmacy consulted to assist with Coumadin dosing Hypertension/hyperlipidemia/GERD/hypothyroidism/neuropathy Continue home medications GI prophylaxis: Stool softener PRN constipation. DVT PPx: Heparin
[2018-12-28 11:14] LABS: Baso # (Auto) 0.1 th/mm3 (0.0-0.2); Baso % (Auto) 0.8 % (0.0-2.0); Eos # (Auto) 0.4 th/mm3 (0.0-0.4); Eos % (Auto) 3.3 % (0.0-4.0); Hematocrit 33.6 % (35.0-46.0); Hemoglobin 10.7 gm/dL (11.6-15.3); Lymph # (Auto) 1.3 th/mm3 (1.0-4.8); Lymph % (Auto) 11.4 % (9.0-44.0); Mean Corpuscular HGB Conc 31.8 % (32.0-36.0); Mean Corpuscular Hemoglobin 27.9 pg (27.0-34.0); Mean Corpuscular Volume 87.7 fL (80.0-100.0); Mean Platelet Volume 10.7 fL (7.0-11.0); Mono # (Auto) 0.7 th/mm3 (0.0-0.9); Mono % (Auto) 6.7 % (0.0-8.0); Neut # (Auto) 8.7 th/mm3 (1.8-7.7); Neut % (Auto) 77.8 % (16.0-70.0); Platelet Count 218 th/mm3 (150-450); Red Blood Count 3.83 mil/mm3 (4.00-5.30); Red Cell Distribution Width 20.8 % (11.6-17.2); White Blood Count 11.2 th/mm3 (4.0-11.0)
[2018-12-28] MEDS ORDERED: Vancomycin Consult Pharmacy OTHER PRN (11:15)
[2018-12-28 11:34] LABS: Carbon Dioxide 23.4 meq/L (21.0-32.0); Magnesium 1.8 mg/dL (1.5-2.5); Potassium 3.4 meq/L (3.5-5.1); Prothrombin Time 10.3 sec (9.8-11.6)
[2018-12-28] MEDS ORDERED: Vancomycin Inj 1,250 MG in Sodium Chlor 0.9% Inj 250 ML IV.SIG ONE ×2 (12:00)
--- NOTE | 2018-12-28 14:32 | MB ---
cc: Floyd Pinedo MD DATE: 12/28/2018 REQUESTING PHYSICIAN: Dr. Comer. REASON FOR VISIT: Bacteremia. Complicated urinary tract infection. HISTORY OF PRESENT ILLNESS: This is an 83-year-old white female who was brought to the emergency department with altered mental status on 12/26/2018. The patient was also noted to have shortness of breath and was lethargic and sleeping most of the day. Her daughter brought her to the emergency department for evaluation. In the emergency department, the heart rate was slightly elevated at 102. Her white count was elevated at 18.4. Urinalysis was performed and it showed many white blood cell clumps. The urine culture has mixed amilcar. Blood cultures taken on admission have gram-positive cocci in 3 bottles; one bottle has been identified as Staph coagulase negative. The second set has not been identified. The patient has been afebrile except for one low temperature of 96.2 this morning. She is currently sitting up in a bedside chair. She is awake and alert. She is a fair historian and mentions to me that she was treated for UTI on several occasions and at one point she had a bacteria in the bloodstream last May. She denies chills, but states that she feels a lot better, otherwise. The patient mentioned that she has been getting frequent urinary tract infections since she was a child. She has been started on vancomycin and she is also receiving ceftriaxone. Her white blood cell count has decreased to 11.2 today. PAST MEDICAL HISTORY: Hypertension, hypothyroidism, gastroesophageal reflux disease, diabetes mellitus type 2, chronic UTI, CHF, atrial fibrillation, neuropathy, history of myocardial infarction, history of cardiac catheterization and cardiac stent, history of appendectomy, history of tonsillectomy, history of implantation of urinary electronic stimulator device. ALLERGIES: PIPERACILLIN/TAZOBACTAM, KETOROLAC. MEDICATIONS: 1. Vancomycin. 2. Ceftriaxone. 3. Tylenol. 4. Ecotrin. 5. Lipitor. 6. Digoxin. 7. Ferrous sulfate. 8. Neurontin. 9. Arava. 10. Synthroid. 11. Cozaar. 12. Toprol-XL. 13. Protonix. 14. Prednisone. 15. Valentina-Colace. 16. Detrol-LA. 17. Coumadin. SOCIAL HISTORY: The patient is a former smoker. No alcohol. No illicit drugs. FAMILY HISTORY: Noncontributory. REVIEW OF SYSTEMS: All systems have been reviewed and pertinent features mentioned in history of present illness. PHYSICAL EXAMINATION: GENERAL: This is a well-developed female who is in no acute distress. She is awake and alert and oriented. VITAL SIGNS: Temperature 96.2, BP 184/77, respirations 16, heart rate 77. HEENT: Head is atraumatic. Extraocular movements grossly intact. Pupils reactive to light. No icterus. Oropharynx: Moist mucosa. No visible lesions. NECK: Supple. No adenopathy. LUNGS: Clear breath sounds bilaterally. HEART: Normal S1, S2. No audible murmurs. ABDOMEN: Bowel sounds present. Soft, no tenderness appreciated. EXTREMITIES: No clubbing, cyanosis or edema. Hyperemia at both feet and tibia. Pulses are intact at the lower extremities. SKIN: No diffuse rash. NEUROLOGIC: No gross focal finding. PSYCHIATRIC: Patient is calm and cooperative. LABORATORY DATA: WBC 11.2, platelet count 218, hemoglobin 10.7, 77% neutrophils, 11% lymphocytes. Creatinine 1.09, BUN 16, sodium 143, creatinine 1.09, estimated GFR 48. Sodium 143. IMAGIN. CT scan of the chest negative for pulmonary embolic disease and there was no lung consolidation noted. 2. Chest x-ray showed cardiomegaly with minimal basilar atelectasis or scarring. IMPRESSION: 1. Bacteremia. No clear etiology for the bacteremia at this time. One blood culture identified as Staphylococcus coagulase negative. The other 2 bottles are pending identification. At this point, it is unclear whether the positive blood culture is related to active infection because it is possible this could be contaminants; however, that would depend on the identity of the other 2 bottles yet to be identified. The patient has improved significantly from admission and white blood cell count is improved. 2. Urinary tract infection. Culture grew mixed amilcar; however, it is likely that she did have a significant degree of infection causing the symptoms that she presented with. 3. Diabetes mellitus. RECOMMENDATIONS: 1. Continue vancomycin. 2. Continue ceftriaxone. 3. Monitor identity of the gram-positive bacteria in the blood to determine whether the bacteria is different and if they are likely contamination. 4. Obtain a new set of blood cultures to verify whether there is continuing bacteremia and is true infection with the bacteria in the blood stream. Thank you for this consultation. I will follow the patient's progress along with you and will make further recommendations upon followup if necessary. MD ANTHONY Brush/javier , 01:19 PM , 01:38 PM
[2018-12-28] MEDS: Famotidine 20 MG Tablet PO SCH (21:05)
[2018-12-29] MEDS: Insulin NovoLOG Aspart Correctional Sugar Inj SQ SCH ×5 (04:25→22:50)
[2018-12-29] MEDS: Levothyroxine 150 MCG Tablet PO SCH (05:52)
[2018-12-29 08:22] LABS: Hematocrit 35.3 % (35.0-46.0); Hemoglobin 11.3 gm/dL (11.6-15.3); Mean Corpuscular HGB Conc 31.9 % (32.0-36.0); Mean Corpuscular Hemoglobin 28.1 pg (27.0-34.0); Mean Corpuscular Volume 88.1 fL (80.0-100.0); Mean Platelet Volume 10.8 fL (7.0-11.0); Platelet Count 239 th/mm3 (150-450); Red Blood Count 4.01 mil/mm3 (4.00-5.30); Red Cell Distribution Width 21.1 % (11.6-17.2); White Blood Count 11.2 th/mm3 (4.0-11.0)
[2018-12-29 08:30] LABS: Prothrombin Time 10.4 sec (9.8-11.6)
[2018-12-29 08:47] LABS: Calcium 8.3 mg/dL (8.5-10.1); Carbon Dioxide 23.9 meq/L (21.0-32.0); Potassium 3.2 meq/L (3.5-5.1)
[2018-12-29 08:50] LABS: Vancomycin,Random 9.8 Comment
[2018-12-29] MEDS: Famotidine 20 MG Tablet PO SCH ×2 (10:26→22:17)
[2018-12-29] MEDS: Senna/Docusate Sodium 8.6/50 MG Tablet PO SCH ×2 (10:26→22:17)
[2018-12-29] MEDS: Ferrous Sulfate 325 MG Tablet PO SCH (10:27)
[2018-12-29] MEDS: Gabapentin 300 MG Capsule PO SCH ×2 (10:27→22:16)
[2018-12-29] MEDS: predniSONE 5 MG Tablet PO SCH (10:28)
[2018-12-29] MEDS: Tolterodine Tartrate LA 2 MG Capsule PO SCH (10:28)
[2018-12-29] MEDS: Heparin - SQ 10,000 UNITS/ML Vial SQ SCH ×2 (10:30→22:17)
[2018-12-29] MEDS: Digoxin 125 MCG Tablet PO SCH (10:30)
[2018-12-29] MEDS: Acetaminophen 325 MG Tablet PO PRN (10:32)
--- NOTE | 2018-12-29 11:05 | P.PNIM ---
Subjective Interval history: Patient reports she is feeling okay today. Her IV infiltrated on the right side. No fevers or chills. Physical Exam Vital signs: Vital Signs 12/28/18 12:00 12/28/18 16:00 12/28/18 20:00 Temperature 96.9 F L 96.2 F L 97 F L Pulse Rate 81 71 69 Respiratory Rate 18 18 18 Blood Pressure 148/96 H 156/68 H 147/67 H Pulse Oximetry 96 98 97 12/29/18 00:00 12/29/18 04:00 12/29/18 09:00 Temperature 97.8 F 97.8 F 97.6 F Pulse Rate 58 L 68 77 Respiratory Rate 18 18 17 Blood Pressure 144/65 H 173/73 H 160/67 H Pulse Oximetry 97 97 99 Intake & Output 12/28/18 12/29/18 12/29/18 18:59 06:59 18:59 Intake Total 1000 / 1000 Balance 1000 / 1000 Intake: IV 1000 / 1000 NS Inj 1,000 ML @ 70 mls/hr IV. 1000 / 1000 CONT .[id number] [facility] Rx#:[id number] Other: Date of Last Bowel Movement 12/28/18 12/29/18 # Bowel Movements 3 Narrative: GENERAL: This is a well-nourished, well-developed patient, in no apparent distress. CARDIOVASCULAR: Normal rate and regular rhythm without murmurs, gallops, or rubs. RESPIRATORY: Good respiratory efforts. Breath sounds equal and clear to auscultation bilaterally. GASTROINTESTINAL: Abdomen soft, non-tender, non-distended. Normal active bowel sounds MUSCULOSKELETAL: Extremities without cyanosis. IV infiltrated on the right antecubital area. NEURO: Alert & Oriented x4 to person, place, time, situation. Moves all ext x4 PSYCH: Appropriate mood and affect. Results Labs CBC & Chem 7: 12/29/18 07:08 12/29/18 07:08 Labs: Microbiology 12/26/18 18:41 Blood - Peripheral Aerobic Blood Culture - Preliminary Staphylococcus coag negative 12/26/18 18:41 Blood - Peripheral Anaerobic Blood Culture - Preliminary Staphylococcus coag negative 12/26/18 18:51 Blood - Peripheral Aerobic Blood Culture - Preliminary No growth in 2 days 12/26/18 18:51 Blood - Peripheral Anaerobic Blood Culture - Preliminary Staphylococcus coag negative 12/26/18 19:04 Clean Catch Urine Urine Culture - Final 50-100,000 cfu/mL mixed amilcar (probable contaminants ) Assessment and Plan Plan 83-year-old female admitted with acute encephalopathy. Sepsis secondary to UTI. Sepsis secondary to UTI Gram-positive bacteremia Patient recently hospitalized at [facility] where she was treated for urosepsis with Rocephin, has been on 250 mg of Cipro daily for chronic UTI Continue Rocephin and vancomycin. Appreciate input from infectious disease. Contaminant is a possibility. Repeat blood cultures and continue IV antibiotics. Acute encephalopathy: Secondary to sepsis as above. - Mental status improved and is at baseline. Acute kidney injury Resolved with IV fluid Monitor renal function Atrial fibrillation/subtherapeutic on Coumadin Continue home metoprolol, digoxin INR subtherapeutic Pharmacy consulted to assist with Coumadin dosing Hypertension/hyperlipidemia/GERD/hypothyroidism/neuropathy Continue home medications GI prophylaxis: Stool softener PRN constipation. DVT PPx: Heparin Dispo: Follow up Repeat blood cultures. Should be able to return home when medically ready.
[2018-12-29] MEDS ORDERED: Acetaminophen 325 MG Tablet PO PRN (11:32)
[2018-12-29] MEDS: Vancomycin Inj 1,000 MG in Sodium Chlor 0.9% Inj 250 ML IV.SIG SCH (13:57)
[2018-12-29] MEDS: Temazepam 15 MG Capsule PO PRN (22:29)
[2018-12-30] MEDS: Insulin NovoLOG Aspart Correctional Sugar Inj SQ SCH ×5 (04:17→20:54)
[2018-12-30] MEDS: Levothyroxine 150 MCG Tablet PO SCH (06:04)
--- NOTE | 2018-12-30 08:39 | P.PNIM ---
Subjective Interval history: Patient reports she is feeling okay today. Afebrile. Tolerating a diet. Physical Exam Vital signs: Vital Signs 12/29/18 09:00 12/29/18 12:00 12/29/18 12:35 Temperature 97.6 F 98.1 F Pulse Rate 77 73 73 Respiratory Rate 17 16 Blood Pressure 160/67 H 156/70 H Pulse Oximetry 99 96 12/29/18 16:00 12/29/18 16:59 12/29/18 20:00 Temperature 98.1 F 97.5 F L Pulse Rate 62 73 53 L Respiratory Rate 19 17 Blood Pressure 163/73 H 175/76 H Pulse Oximetry 96 97 12/29/18 23:33 12/30/18 00:00 12/30/18 03:55 Temperature 97.8 F Pulse Rate 48 L 58 L 54 L Respiratory Rate 16 Blood Pressure 154/72 H Pulse Oximetry 98 12/30/18 04:00 Temperature 98.1 F Pulse Rate 69 Respiratory Rate 17 Blood Pressure 158/74 H Pulse Oximetry 96 Intake & Output 12/29/18 12/30/18 12/30/18 18:59 06:59 18:59 Intake Total 1360 / 1360 200 / 200 Balance 1360 / 1360 200 / 200 Weight 68.2 kg Intake: IV 400 / 400 200 / 200 NS Inj 1,000 ML @ 70 mls/hr IV. 150 / 150 CONT .[id number] [facility] Rx#:[id number] Vancomycin Inj 1,000 MG In NS 250 / 250 Inj 250 ML @ 250 mls/hr IV.SIG Q24H [facility] Rx#:[id number] Rocephin Inj 1,000 MG In NS Inj 200 / 200 100 ML @ 200 mls/hr IV.SIG Q24H [facility] Rx#:[id number] Oral 960 / 960 Other: # Voids 4 4 Date of Last Bowel Movement 12/29/18 12/29/18 # Bowel Movements 1 Weight On Admission 68 kg Narrative: GENERAL: This is a well-nourished, well-developed patient, in no apparent distress. CARDIOVASCULAR: Normal rate and regular rhythm without murmurs, gallops, or rubs. RESPIRATORY: Good respiratory efforts. Breath sounds equal and clear to auscultation bilaterally. GASTROINTESTINAL: Abdomen soft, non-tender, non-distended. Normal active bowel sounds MUSCULOSKELETAL: Extremities without cyanosis or edema. NEURO: Alert & Oriented x4 to person, place, time, situation. Moves all ext x4 PSYCH: Appropriate mood and affect. Results Labs CBC & Chem 7: 12/30/18 11:50 12/30/18 11:50 Labs: Microbiology 12/28/18 20:10 Blood - Peripheral Aerobic Blood Culture - Preliminary No growth in 1 day 12/28/18 20:10 Blood - Peripheral Anaerobic Blood Culture - Preliminary No growth in 1 day 12/28/18 20:15 Blood - Peripheral Aerobic Blood Culture - Preliminary No growth in 1 day 12/28/18 20:15 Blood - Peripheral Anaerobic Blood Culture - Preliminary No growth in 1 day 12/26/18 18:51 Blood - Peripheral Aerobic Blood Culture - Preliminary No growth in 3 days 12/26/18 18:51 Blood - Peripheral Anaerobic Blood Culture - Preliminary Staphylococcus coag negative 12/26/18 18:41 Blood - Peripheral Aerobic Blood Culture - Preliminary Staphylococcus coag negative 12/26/18 18:41 Blood - Peripheral Anaerobic Blood Culture - Preliminary Staphylococcus coag negative Assessment and Plan Plan 83-year-old female admitted with acute encephalopathy. Sepsis secondary to UTI. Sepsis secondary to UTI Bacteremia of uncertain etiology. Patient recently hospitalized at [facility] where she was treated for urosepsis with Rocephin, has been on 250 mg of Cipro daily for chronic UTI Appreciate input from infectious disease. Contaminant is a possibility. Repeat blood cultures. Urine culture with possible contaminant. Per infectious disease, repeat urine culture, check C. difficile for report of diarrhea. If the repeat blood cultures are negative at 72 hours which would be tomorrow and her C. difficile is negative, she can be discharged home without antibiotics. Otherwise follow recommendations for treatment per infectious disease as noted in the last progress note. Acute encephalopathy: Secondary to sepsis as above. - Mental status improved and is at baseline. Acute kidney injury Resolved with IV fluid Monitor renal function Atrial fibrillation/subtherapeutic on Coumadin Continue home metoprolol, digoxin INR subtherapeutic Pharmacy consulted to assist with Coumadin dosing Hypertension/hyperlipidemia/GERD/hypothyroidism/neuropathy Continue home medications GI prophylaxis: Stool softener PRN constipation. DVT PPx: Heparin Dispo: Follow up Repeat blood cultures. If negative at 72 hours and diarrhea resolved/C. difficile negative, she can be discharged home without antibiotics. See ID note for detail. Progress Note: Quality VTE Deep Vein Thrombosis/Pulmonary Embolism Present on Admission: No
[2018-12-30] MEDS: Furosemide 20 MG Tablet PO SCH (08:50)
[2018-12-30] MEDS: Famotidine 20 MG Tablet PO SCH ×2 (08:50→20:44)
[2018-12-30] MEDS: Tolterodine Tartrate LA 2 MG Capsule PO SCH (08:50)
[2018-12-30] MEDS: Digoxin 125 MCG Tablet PO SCH (08:52)
[2018-12-30] MEDS: Gabapentin 300 MG Capsule PO SCH ×2 (08:52→20:44)
[2018-12-30] MEDS: Ferrous Sulfate 325 MG Tablet PO SCH (08:52)
[2018-12-30] MEDS: Heparin - SQ 10,000 UNITS/ML Vial SQ SCH ×2 (08:53→20:44)
[2018-12-30] MEDS: predniSONE 5 MG Tablet PO SCH (08:54)
[2018-12-30] MEDS: Senna/Docusate Sodium 8.6/50 MG Tablet PO SCH ×2 (09:00→20:46)
[2018-12-30 10:16] LABS: INR 1.1 Ratio; Prothrombin Time 11.5 sec (9.8-11.6)
--- NOTE | 2018-12-30 11:09 | P.PNID ---
Subjective Remarks: Patient is awake and alert. She reports having diarrhea. States that she gets loose stools 3 times a week. However she has frequent loose stools currently. She has difficulty making it to the bathroom in time. She denies abdominal pain. No fever. Blood cultures from 12/26 showing different morphologies of coag negative staph. Blood culture repeated on 12/28 has no growth in 2 days. 83-year-old white female who was brought to the emergency department with altered mental status on 12/26/2018. The patient was also noted to have shortness of breath and was lethargic and sleeping most of the day. Her daughter brought her to the emergency department for evaluation. In the emergency department, the heart rate was slightly elevated at 102. Her white count was elevated at 18.4. Urinalysis was performed and it showed many white blood cell clumps. The urine culture has mixed amilcar. Past Medical History: PAST MEDICAL HISTORY: Hypertension, hypothyroidism, gastroesophageal reflux disease, diabetes mellitus type 2, chronic UTI, CHF, atrial fibrillation, neuropathy, history of myocardial infarction, history of cardiac catheterization and cardiac stent, history of appendectomy, history of tonsillectomy, history of implantation of urinary electronic stimulator device. Allergies/Adverse Reactions: Allergies ketorolac Allergy (Severe, Verified 12/27/18 00:55) Hives piperacillin Allergy (Severe, Verified 12/27/18 00:55) Anaphylaxis tazobactam Allergy (Severe, Verified 12/27/18 00:55) Anaphylaxis Objective Vital Signs 12/29/18 12:00 12/29/18 12:35 12/29/18 16:00 Temperature 98.1 F Pulse Rate 73 73 62 Respiratory Rate 16 Blood Pressure 156/70 H Pulse Oximetry 96 12/29/18 16:59 12/29/18 20:00 12/29/18 23:33 Temperature 98.1 F 97.5 F L Pulse Rate 73 53 L 48 L Respiratory Rate 19 17 Blood Pressure 163/73 H 175/76 H Pulse Oximetry 96 97 12/30/18 00:00 12/30/18 03:55 12/30/18 04:00 Temperature 97.8 F 98.1 F Pulse Rate 58 L 54 L 69 Respiratory Rate 16 17 Blood Pressure 154/72 H 158/74 H Pulse Oximetry 98 96 12/30/18 08:00 Temperature 96 F L Pulse Rate 77 Respiratory Rate 18 Blood Pressure 141/84 H Pulse Oximetry 99 Intake & Output 12/29/18 12/30/18 12/30/18 18:59 06:59 18:59 Intake Total 1360 / 1360 200 / 200 Balance 1360 / 1360 200 / 200 Weight 68.2 kg Intake: IV 400 / 400 200 / 200 NS Inj 1,000 ML @ 70 mls/hr IV. 150 / 150 CONT .[id number] [facility] Rx#:[id number] Vancomycin Inj 1,000 MG In NS 250 / 250 Inj 250 ML @ 250 mls/hr IV.SIG Q24H [facility] Rx#:[id number] Rocephin Inj 1,000 MG In NS Inj 200 / 200 100 ML @ 200 mls/hr IV.SIG Q24H [facility] Rx#:[id number] Oral 960 / 960 Other: # Voids 4 4 Date of Last Bowel Movement 12/29/18 12/29/18 # Bowel Movements 1 Weight On Admission 68 kg 12/26/18 18:41 Blood - Peripheral Aerobic Blood Culture - Final Staphylococcus epidermidis 12/26/18 18:41 Blood - Peripheral Anaerobic Blood Culture - Final Staphylococcus coag negative 12/28/18 20:10 Blood - Peripheral Aerobic Blood Culture - Preliminary No growth in 1 day 12/28/18 20:10 Blood - Peripheral Anaerobic Blood Culture - Preliminary No growth in 1 day 12/28/18 20:15 Blood - Peripheral Aerobic Blood Culture - Preliminary No growth in 1 day 12/28/18 20:15 Blood - Peripheral Anaerobic Blood Culture - Preliminary No growth in 1 day 12/26/18 18:51 Blood - Peripheral Aerobic Blood Culture - Preliminary No growth in 3 days 12/26/18 18:51 Blood - Peripheral Anaerobic Blood Culture - Preliminary Staphylococcus coag negative 12/26/18 19:04 Clean Catch Urine Urine Culture - Final 50-100,000 cfu/mL mixed amilcar (probable contaminants ) Lab - Hematology Results 12/28/18 12/29/18 09:19 07:08 WBC 11.2 H 11.2 H RBC 3.83 L 4.01 Hgb 10.7 L 11.3 L Hct 33.6 L 35.3 MCV 87.7 88.1 MCH 27.9 28.1 MCHC 31.8 L 31.9 L RDW 20.8 H 21.1 H Plt Count 218 239 MPV 10.7 10.8 Neut % (Auto) 77.8 H Lymph % (Auto) 11.4 [place] % (Auto) 6.7 Eos % (Auto) 3.3 Baso % (Auto) 0.8 Neut # (Auto) 8.7 H Lymph # (Auto) 1.3 [place] # (Auto) 0.7 Eos # (Auto) 0.4 Baso # (Auto) 0.1 WBC Differential . Differential Comment Auto diff final Lab - Chemistry Results 12/28/18 12/28/18 12/28/18 10:43 13:03 16:26 Sodium 143 Potassium 3.4 L Chloride 111 H Carbon Dioxide 23.4 Anion Gap 9 BUN 16 Creatinine 1.09 H Estimated GFR 48 L POC Glucose 219 H 210 H Random Glucose 160 H Calcium 8.0 L Magnesium 1.8 12/28/18 12/29/18 12/29/18 20:40 04:25 07:08 Sodium 142 Potassium 3.2 L Chloride 110 H Carbon Dioxide 23.9 Anion Gap 8 BUN 11 Creatinine 0.97 Estimated GFR 55 L POC Glucose 223 H 117 H Random Glucose 104 Calcium 8.3 L Magnesium 12/29/18 12/29/18 12/29/18 07:24 11:40 16:56 Sodium Potassium Chloride Carbon Dioxide Anion Gap BUN Creatinine Estimated GFR POC Glucose 105 197 H 217 H Random Glucose Calcium Magnesium 12/29/18 12/30/18 22:16 08:14 Sodium Potassium Chloride Carbon Dioxide Anion Gap BUN Creatinine Estimated GFR POC Glucose 163 H 106 Random Glucose Calcium Magnesium Imaging: ITS Impressions Chest X-Ray 12/26/18 18:36 CONCLUSION: Cardiomegaly with minimal basilar atelectasis or scarring. Venous Doppler Study 12/26/18 19:49 CONCLUSION: No evidence of left lower extremity DVT. Chest CTA 12/26/18 20:28 CONCLUSION: 1. Negative for pulmonary embolic disease. Moderate to severe coronary artery calcifications. No lung consolidation. Minimal basilar atelectasis or scarring. Physical Exam: PHYSICAL EXAMINATION: GENERAL: Patient is awake and alert and oriented. HEENT: Head is atraumatic. Extraocular movements grossly intact. Pupils reactive to light. No icterus. Oropharynx: Moist mucosa. No visible lesions. NECK: Supple. No adenopathy. LUNGS: Clear breath sounds. HEART: Normal S1, S2. Irregular rhythm. No audible murmurs. ABDOMEN: Bowel sounds present. Soft, no tenderness appreciated. EXTREMITIES: No clubbing, cyanosis or edema. Hyperemia at both feet and tibia. Pulses are intact at the lower extremities. SKIN: No diffuse rash. NEUROLOGIC: No gross focal finding. PSYCHIATRIC: Calm and cooperative. Assessment and Plan - Plan IMPRESSION: 1. Bacteremia. No clear etiology for the bacteremia at this time. One blood culture identified as Staphylococcus coagulase negative. The other 2 bottles a different staph morphologies. This is probably contamination. 2. Urinary tract infection. Culture grew mixed amilcar; however, it is likely that she did have a significant degree of infection causing the symptoms that she presented with. 3. Diabetes mellitus. 4. Diarrhea. Probably antibiotic related. Rule out C. difficile. RECOMMENDATIONS: 1. Continue vancomycin. 2. Stop ceftriaxone in light of the diarrhea. 3. Obtain stool C. difficile. 4. Repeat the urine culture. 5. Follow the blood cultures and if it is negative at 72 hours the IV vancomycin can be discontinued. If the stool C. difficile toxin on antigen is positive, start oral vancomycin. If the patient has negative blood culture stop vancomycin focus on treatment of C. difficile or UTI depending on the urine culture and C. difficile testing. If both are negative she can be discharged without antibiotics. And may be given medication for diarrhea control. I will be off this weekend. Other ID MD covering in my absence. Please call if needed.
[2018-12-30 12:26] LABS: Hematocrit 37.5 % (35.0-46.0); Hemoglobin 11.8 gm/dL (11.6-15.3); Mean Corpuscular HGB Conc 31.6 % (32.0-36.0); Mean Corpuscular Hemoglobin 28.2 pg (27.0-34.0); Mean Corpuscular Volume 89.5 fL (80.0-100.0); Mean Platelet Volume 11.1 fL (7.0-11.0); Platelet Count 237 th/mm3 (150-450); Red Blood Count 4.19 mil/mm3 (4.00-5.30); Red Cell Distribution Width 20.8 % (11.6-17.2); White Blood Count 10.5 th/mm3 (4.0-11.0)
[2018-12-30 12:49] LABS: Calcium 8.2 mg/dL (8.5-10.1); Carbon Dioxide 21.3 meq/L (21.0-32.0); Potassium 3.6 meq/L (3.5-5.1)
[2018-12-30] MEDS: Vancomycin Inj 1,000 MG in Sodium Chlor 0.9% Inj 250 ML IV.SIG SCH (13:52)
[2018-12-30] MEDS: Temazepam 15 MG Capsule PO PRN (20:43)
[2018-12-31] MEDS: Insulin NovoLOG Aspart Correctional Sugar Inj SQ SCH ×5 (02:43→21:04)
[2018-12-31] MEDS: Levothyroxine 150 MCG Tablet PO SCH (05:36)
[2018-12-31] MEDS: Digoxin 125 MCG Tablet PO SCH (08:54)
[2018-12-31] MEDS: predniSONE 5 MG Tablet PO SCH (08:56)
[2018-12-31] MEDS: Famotidine 20 MG Tablet PO SCH ×2 (08:56→21:03)
[2018-12-31] MEDS: Tolterodine Tartrate LA 2 MG Capsule PO SCH (08:57)
[2018-12-31] MEDS: Senna/Docusate Sodium 8.6/50 MG Tablet PO SCH ×2 (08:57→21:03)
[2018-12-31] MEDS: Gabapentin 300 MG Capsule PO SCH ×2 (08:57→21:00)
[2018-12-31] MEDS: Ferrous Sulfate 325 MG Tablet PO SCH (08:57)
[2018-12-31] MEDS: Furosemide 20 MG Tablet PO SCH (08:58)
[2018-12-31] MEDS: Heparin - SQ 10,000 UNITS/ML Vial SQ SCH ×2 (08:58→21:04)
[2018-12-31 11:25] LABS: INR 1.3 Ratio
[2018-12-31] MEDS ORDERED: Pharmacy Ordered Lab Info OTHER ONE (13:45)
--- NOTE | 2018-12-31 14:14 | P.PNIM ---
Subjective Interval history: Patient denies any headache, neck pain, chest pain, cough, shortness of breath, urinary symptoms. Diarrhea has resolved. Afebrile. Physical Exam Vital signs: Vital Signs 12/30/18 16:00 12/30/18 20:00 12/31/18 00:00 Temperature 96.3 F L 97.5 F L 98.0 F Pulse Rate 72 65 60 Respiratory Rate 16 20 20 Blood Pressure 135/86 149/69 H 164/70 H Pulse Oximetry 98 98 98 12/31/18 04:00 12/31/18 06:00 12/31/18 06:25 Temperature 97.6 F Pulse Rate 62 65 Respiratory Rate 20 Blood Pressure 184/79 H 172/80 H Pulse Oximetry 100 12/31/18 08:00 12/31/18 09:03 Temperature 97.6 F Pulse Rate 66 71 Respiratory Rate 18 Blood Pressure 168/70 H Pulse Oximetry 96 Intake & Output 12/30/18 12/31/18 12/31/18 18:59 06:59 18:59 Intake Total 240 / 240 Balance 240 / 240 Intake: Oral 240 / 240 Other: # Voids 3 Date of Last Bowel Movement 12/29/18 12/30/18 Narrative: Not in distress, well-nourished, looks stated age PERRL, pink conjunctiva without injection, anicteric Normal rate and regular rhythm, no murmurs gallops or rubs appreciated. Clear to auscultation and symmetric bilaterally, normal respiratory effort. Normal bowel sounds, soft, non-tender, nondistended, no guarding. Extremities without clubbing, cyanosis, or edema. No rash of generalized distribution. Skin is warm and dry. AAO x3, no cranial nerve deficits, moves all 4 extremities, no focal neurologic deficits Results Labs CBC & Chem 7: 12/30/18 11:50 12/31/18 10:19 Labs: Microbiology 12/30/18 13:51 Catheterized Urine Urine Culture - Preliminary gram negative rods 12/26/18 18:51 Blood - Peripheral Aerobic Blood Culture - Final No growth in 5 days 12/26/18 18:51 Blood - Peripheral Anaerobic Blood Culture - Final Staphylococcus capitis-capitis 12/28/18 20:10 Blood - Peripheral Aerobic Blood Culture - Preliminary No growth in 3 days 12/28/18 20:10 Blood - Peripheral Anaerobic Blood Culture - Preliminary No growth in 3 days 12/28/18 20:15 Blood - Peripheral Aerobic Blood Culture - Preliminary No growth in 3 days 12/28/18 20:15 Blood - Peripheral Anaerobic Blood Culture - Preliminary No growth in 3 days 12/26/18 18:41 Blood - Peripheral Aerobic Blood Culture - Final Staphylococcus epidermidis 12/26/18 18:41 Blood - Peripheral Anaerobic Blood Culture - Final Staphylococcus coag negative Assessment and Plan Plan 83-year-old female admitted with acute encephalopathy. Sepsis secondary to UTI. Sepsis secondary to UTI Bacteremia of uncertain etiology. Patient recently hospitalized at [facility] where she was treated for urosepsis with Rocephin, has been on 250 mg of Cipro daily for chronic UTI Appreciate input from infectious disease. Blood culture, contaminant is a possibility. Repeat blood culture now 72 hours, still negative. May stop vancomycin per infectious disease. Urine culture however growing gram-negative rods, start ceftriaxone, await ID and sensitivity. Start probiotics. Acute encephalopathy: Secondary to sepsis as above. - Mental status improved and is at baseline. Acute kidney injury Resolved with IV fluid Monitor renal function Atrial fibrillation/subtherapeutic on Coumadin Continue home metoprolol, digoxin INR subtherapeutic Pharmacy consulted to assist with Coumadin dosing Hypertension/hyperlipidemia/GERD/hypothyroidism/neuropathy Continue home medications GI prophylaxis: Stool softener PRN constipation. DVT PPx: Heparin Dispo: Follow-up urine culture, once definite ID and sensitivities out, may discharge on oral antibiotics. Progress Note: Quality VTE Deep Vein Thrombosis/Pulmonary Embolism Present on Admission: No
[2019-01-01] MEDS: Insulin NovoLOG Aspart Correctional Sugar Inj SQ SCH ×5 (04:13→22:53)
[2019-01-01] MEDS: Levothyroxine 150 MCG Tablet PO SCH (05:06)
[2019-01-01] MEDS: Furosemide 20 MG Tablet PO SCH (08:41)
[2019-01-01] MEDS: Ferrous Sulfate 325 MG Tablet PO SCH (08:41)
[2019-01-01] MEDS: Digoxin 125 MCG Tablet PO SCH (08:41)
[2019-01-01] MEDS: Senna/Docusate Sodium 8.6/50 MG Tablet PO SCH ×2 (08:42→21:34)
[2019-01-01] MEDS: Famotidine 20 MG Tablet PO SCH ×2 (08:42→21:33)
[2019-01-01] MEDS: Heparin - SQ 10,000 UNITS/ML Vial SQ SCH (08:43)
[2019-01-01] MEDS: Gabapentin 300 MG Capsule PO SCH ×2 (08:43→21:35)
[2019-01-01] MEDS: Tolterodine Tartrate LA 2 MG Capsule PO SCH (08:43)
[2019-01-01] MEDS: predniSONE 5 MG Tablet PO SCH (08:43)
--- NOTE | 2019-01-01 09:04 | P.PNIM ---
Subjective Interval history: No fever or chills, no urinary symptoms, afebrile but leukocytosis is worse. Physical Exam Vital signs: Vital Signs 12/31/18 09:03 12/31/18 12:00 12/31/18 14:00 Temperature 97.4 F L Pulse Rate 71 74 90 Respiratory Rate 18 Blood Pressure 139/65 Pulse Oximetry 97 12/31/18 16:00 12/31/18 18:00 12/31/18 20:00 Temperature 97.9 F 97.7 F Pulse Rate 80 85 66 Respiratory Rate 18 17 Blood Pressure 144/63 H 149/70 H Pulse Oximetry 98 100 01/01/19 08:00 01/01/19 08:51 Temperature 97.8 F Pulse Rate 92 H 77 Respiratory Rate 17 Blood Pressure 133/62 Pulse Oximetry 97 Intake & Output 12/31/18 01/01/19 01/01/19 18:59 06:59 18:59 Intake Total 150 / 150 320 / 320 Output Total / Balance 150 / 150 -1 / -1 320 / 320 Weight 68.7 kg Intake: IV 150 / 150 Levaquin 750 mg Premix Inj 150 150 / 150 ML @ 100 mls/hr IV.SIG Q24H [facility] Rx#:[id number] Oral 320 / 320 Output: Urine Other: # Voids 6 3 Date of Last Bowel Movement 12/30/18 01/01/19 01/01/19 # Bowel Movements 1 Narrative: Not in distress, well-nourished, looks stated age Normal rate and regular rhythm, no murmurs gallops or rubs appreciated. Clear to auscultation and symmetric bilaterally, normal respiratory effort. Normal bowel sounds, soft, non-tender, nondistended, no guarding. Extremities without clubbing, cyanosis, or edema. No rash of generalized distribution. Skin is warm and dry. AAO x3, no cranial nerve deficits, moves all 4 extremities, no focal neurologic deficits Results Labs CBC & Chem 7: 01/01/19 11:40 01/01/19 11:40 Labs: Microbiology 12/30/18 13:51 Catheterized Urine Urine Culture - Preliminary gram negative rods 12/26/18 18:51 Blood - Peripheral Aerobic Blood Culture - Final No growth in 5 days 12/26/18 18:51 Blood - Peripheral Anaerobic Blood Culture - Final Staphylococcus capitis-capitis 12/28/18 20:10 Blood - Peripheral Aerobic Blood Culture - Preliminary No growth in 3 days 12/28/18 20:10 Blood - Peripheral Anaerobic Blood Culture - Preliminary No growth in 3 days 12/28/18 20:15 Blood - Peripheral Aerobic Blood Culture - Preliminary No growth in 3 days 12/28/18 20:15 Blood - Peripheral Anaerobic Blood Culture - Preliminary No growth in 3 days Assessment and Plan Plan 83-year-old female admitted with acute encephalopathy. Sepsis secondary to UTI. Sepsis secondary to UTI Bacteremia of uncertain etiology. Patient recently hospitalized at [facility] where she was treated for urosepsis with Rocephin, has been on 250 mg of Cipro daily for chronic UTI Appreciate input from infectious disease. Blood culture, contaminant is a possibility. Repeat blood culture now 72 hours, still negative. Vancomycin stopped per infectious disease. Urine culture however growing E. coli, ESBL, sensitive to ceftriaxone, patient has worsening leukocytosis and kidney function. Start Zosyn, infectious disease following, probiotics. Acute encephalopathy: Secondary to sepsis as above. - Mental status improved and is at baseline. Acute kidney injury Resolved with IV fluid, creatinine worse, restart IVF. Hold Lasix for now, may continue losartan. BMP. Diabetes mellitus-BG's better. On metformin at home, may restart with sliding scale insulin. Atrial fibrillation/subtherapeutic on Coumadin Continue home metoprolol, digoxin INR subtherapeutic, Pharmacy consulted to assist with Coumadin dosing, check digoxin level. Hypertension/hyperlipidemia/GERD/hypothyroidism/neuropathy Continue home medications GI prophylaxis: Stool softener PRN constipation. DVT PPx: Heparin Dispo: After cleared by infectious disease. Progress Note: Quality VTE Deep Vein Thrombosis/Pulmonary Embolism Present on Admission: No
[2019-01-01] MEDS ORDERED: Nitrofurantoin Monohydrate-Macrocrystal 100 MG Capsule PO SCH (10:45)
[2019-01-01 11:57] LABS: Hematocrit 36.4 % (35.0-46.0); Mean Corpuscular HGB Conc 32.9 % (32.0-36.0); Mean Corpuscular Hemoglobin 29.3 pg (27.0-34.0); Mean Corpuscular Volume 89.2 fL (80.0-100.0); Platelet Count 265 th/mm3 (150-450); Red Blood Count 4.08 mil/mm3 (4.00-5.30); Red Cell Distribution Width 20.6 % (11.6-17.2); White Blood Count 17.5 th/mm3 (4.0-11.0)
[2019-01-01 12:07] LABS: Prothrombin Time 20.4 sec (9.8-11.6)
[2019-01-01 12:20] LABS: Potassium 3.6 meq/L (3.5-5.1)
[2019-01-01] MEDS: Piperacil/Tazo 3.375 GM Premix 3.375 GM/50 ML PIGGYBACK IV.SIG SCH ×2 (15:12→21:35)
[2019-01-01] MEDS: Sod Chloride 0.9% Inj 1,000 ML IV.CONT SCH (15:13)
[2019-01-02] MEDS: Piperacil/Tazo 3.375 GM Premix 3.375 GM/50 ML PIGGYBACK IV.SIG SCH ×2 (03:50→09:06)
[2019-01-02] MEDS: Insulin NovoLOG Aspart Correctional Sugar Inj SQ SCH ×5 (03:53→22:30)
[2019-01-02] MEDS: Levothyroxine 150 MCG Tablet PO SCH (05:32)
[2019-01-02] MEDS: Gabapentin 300 MG Capsule PO SCH ×2 (09:01→22:24)
[2019-01-02] MEDS: Ferrous Sulfate 325 MG Tablet PO SCH (09:02)
[2019-01-02] MEDS: predniSONE 5 MG Tablet PO SCH (09:02)
[2019-01-02] MEDS: Digoxin 125 MCG Tablet PO SCH (09:02)
[2019-01-02] MEDS: Senna/Docusate Sodium 8.6/50 MG Tablet PO SCH ×2 (09:02→22:24)
[2019-01-02] MEDS: Famotidine 20 MG Tablet PO SCH ×2 (09:03→22:24)
[2019-01-02] MEDS: Tolterodine Tartrate LA 2 MG Capsule PO SCH (09:03)
[2019-01-02 11:27] LABS: INR 2.5 Ratio; Prothrombin Time 25.1 sec (9.8-11.6)
[2019-01-02 11:46] LABS: Calcium 8.7 mg/dL (8.5-10.1); Carbon Dioxide 24.1 meq/L (21.0-32.0); Potassium 4.1 meq/L (3.5-5.1)
[2019-01-02 11:49] LABS: Digoxin 0.8 ng/mL (0.8-2.0)
[2019-01-02] MEDS: Sod Chloride 0.9% Inj 1,000 ML IV.CONT SCH (13:46)
--- NOTE | 2019-01-02 14:34 | P.PNIM ---
Subjective Interval history: No any complaints, afebrile, no urinary symptoms, no diarrhea , no shortness of breath. Physical Exam Vital signs: Vital Signs 01/01/19 15:45 01/01/19 16:38 01/01/19 20:00 Temperature 98.2 F 97.2 F L Pulse Rate 77 75 94 H Respiratory Rate 20 16 Blood Pressure 126/60 142/67 H Pulse Oximetry 98 96 01/01/19 22:00 01/02/19 00:00 01/02/19 02:00 Temperature 97.5 F L Pulse Rate 63 63 68 Respiratory Rate 16 Blood Pressure 138/65 Pulse Oximetry 96 01/02/19 04:00 01/02/19 08:35 01/02/19 12:10 Temperature 98.7 F 96.9 F L 96.9 F L Pulse Rate 80 83 78 Respiratory Rate 17 16 17 Blood Pressure 139/64 161/67 H 132/58 L Pulse Oximetry 95 96 Intake & Output 01/01/19 01/02/19 01/02/19 18:59 06:59 18:59 Intake Total 610 / 610 580 / 580 1050 / 1050 Output Total 2201 / 2201 600 / 600 Balance -1591 / -1591 -20 / -20 1050 / 1050 Intake: IV 50 / 50 100 / 100 1050 / 1050 NS Inj 1,000 ML @ 42 mls/hr IV. 1000 / 1000 CONT .[id number] [facility] Rx#:[id number] Zosyn 3.375 GM Premix 3.375 gm 50 / 50 100 / 100 50 / 50 In 50 ml @ 100 mls/hr IV.SIG Q6H [facility] Rx#:[id number] Oral 560 / 560 480 / 480 Output: Urine 2201 / 2201 600 / 600 Other: # Voids 3 Date of Last Bowel Movement 01/01/19 01/01/19 01/02/19 Narrative: Not in distress, well-nourished, looks stated age Clear to auscultation and symmetric bilaterally, normal respiratory effort. Normal bowel sounds, soft, non-tender, nondistended, no guarding. Extremities without clubbing, cyanosis, or edema. No rash of generalized distribution. Skin is warm and dry. AAO x3, no cranial nerve deficits, moves all 4 extremities, no focal neurologic deficits Results Labs CBC & Chem 7: 01/01/19 11:40 01/02/19 10:31 Labs: Microbiology 12/28/18 20:10 Blood - Peripheral Aerobic Blood Culture - Final No growth in 5 days 12/28/18 20:10 Blood - Peripheral Anaerobic Blood Culture - Final No growth in 5 days 12/28/18 20:15 Blood - Peripheral Aerobic Blood Culture - Final No growth in 5 days 12/28/18 20:15 Blood - Peripheral Anaerobic Blood Culture - Final No growth in 5 days Assessment and Plan Plan 83-year-old female admitted with acute encephalopathy. Sepsis secondary to UTI. Sepsis secondary to UTI Bacteremia of uncertain etiology. Patient recently hospitalized at [facility] where she was treated for urosepsis with Rocephin, has been on 250 mg of Cipro daily for chronic UTI Appreciate input from infectious disease. Blood culture, contaminant is a possibility. Repeat blood culture now 72 hours, still negative. Vancomycin stopped per infectious disease. Urine culture however growing E. coli, ESBL, not sensitive to ceftriaxone, sensitive to Zosyn. patient has worsening leukocytosis and kidney function. Cont Zosyn (01/01--), infectious disease following, probiotics. Recheck CBC and BMP tomorrow. Discussed with Dr. Cecil coombs. Antibiotics switched to ertapenem. Acute encephalopathy: Secondary to sepsis as above. - Mental status improved and is at baseline. Acute kidney injury-improved with IVF, now worsening again, hold Lasix, hold losartan, increase IVF. Recheck BMP tomorrow. Diabetes mellitus-BG's better. On metformin at home, may restart with sliding scale insulin. Atrial fibrillation/subtherapeutic on Coumadin Continue home metoprolol, digoxin INR subtherapeutic, Pharmacy consulted to assist with Coumadin dosing, check digoxin level. Hypertension/hyperlipidemia/GERD/hypothyroidism/neuropathy Continue home medications GI prophylaxis: Stool softener PRN constipation. DVT PPx: Heparin Dispo: After cleared by infectious disease. Progress Note: Quality VTE Deep Vein Thrombosis/Pulmonary Embolism Present on Admission: No
--- NOTE | 2019-01-02 14:34 | P.PNID ---
Subjective Remarks: Patient is awake and alert. Denies chills. Denies abdominal pain. No fever. Repeat urine culture has ESBL E. coli. Patient reports that she never gets any symptoms when she had the urine infection. Blood cultures from 12/26 showing different morphologies of coag negative staph. Blood culture repeated on 12/28 has no growth. 83-year-old white female who was brought to the emergency department with altered mental status on 12/26/2018. The patient was also noted to have shortness of breath and was lethargic and sleeping most of the day. Her daughter brought her to the emergency department for evaluation. In the emergency department, the heart rate was slightly elevated at 102. Her white count was elevated at 18.4. Urinalysis was performed and it showed many white blood cell clumps. The urine culture has mixed amilcar. Past Medical History: PAST MEDICAL HISTORY: Hypertension, hypothyroidism, gastroesophageal reflux disease, diabetes mellitus type 2, chronic UTI, CHF, atrial fibrillation, neuropathy, history of myocardial infarction, history of cardiac catheterization and cardiac stent, history of appendectomy, history of tonsillectomy, history of implantation of urinary electronic stimulator device. Allergies/Adverse Reactions: Allergies ketorolac Allergy (Severe, Verified 12/27/18 00:55) Hives piperacillin Allergy (Severe, Verified 12/27/18 00:55) Anaphylaxis tazobactam Allergy (Severe, Verified 12/27/18 00:55) Anaphylaxis Objective Vital Signs 01/01/19 15:45 01/01/19 16:38 01/01/19 20:00 Temperature 98.2 F 97.2 F L Pulse Rate 77 75 94 H Respiratory Rate 20 16 Blood Pressure 126/60 142/67 H Pulse Oximetry 98 96 01/01/19 22:00 01/02/19 00:00 01/02/19 02:00 Temperature 97.5 F L Pulse Rate 63 63 68 Respiratory Rate 16 Blood Pressure 138/65 Pulse Oximetry 96 01/02/19 04:00 01/02/19 08:35 01/02/19 12:10 Temperature 98.7 F 96.9 F L 96.9 F L Pulse Rate 80 83 78 Respiratory Rate 17 16 17 Blood Pressure 139/64 161/67 H 132/58 L Pulse Oximetry 95 96 Intake & Output 01/01/19 01/02/19 01/02/19 18:59 06:59 18:59 Intake Total 610 / 610 580 / 580 1050 / 1050 Output Total 2201 / 2201 600 / 600 Balance -1591 / -1591 -20 / -20 1050 / 1050 Intake: IV 50 / 50 100 / 100 1050 / 1050 NS Inj 1,000 ML @ 42 mls/hr IV. 1000 / 1000 CONT .[id number] [facility] Rx#:[id number] Zosyn 3.375 GM Premix 3.375 gm 50 / 50 100 / 100 50 / 50 In 50 ml @ 100 mls/hr IV.SIG Q6H [facility] Rx#:[id number] Oral 560 / 560 480 / 480 Output: Urine 2201 / 2201 600 / 600 Other: # Voids 3 Date of Last Bowel Movement 01/01/19 01/01/19 01/02/19 12/28/18 20:10 Blood - Peripheral Aerobic Blood Culture - Final No growth in 5 days 12/28/18 20:10 Blood - Peripheral Anaerobic Blood Culture - Final No growth in 5 days 12/28/18 20:15 Blood - Peripheral Aerobic Blood Culture - Final No growth in 5 days 12/28/18 20:15 Blood - Peripheral Anaerobic Blood Culture - Final No growth in 5 days 12/30/18 13:51 Catheterized Urine Urine Culture - Final Escherichia coli ESBL positive 12/26/18 18:51 Blood - Peripheral Aerobic Blood Culture - Final No growth in 5 days 12/26/18 18:51 Blood - Peripheral Anaerobic Blood Culture - Final Staphylococcus capitis-capitis 12/26/18 18:41 Blood - Peripheral Aerobic Blood Culture - Final Staphylococcus epidermidis 12/26/18 18:41 Blood - Peripheral Anaerobic Blood Culture - Final Staphylococcus coag negative Lab - Hematology Results 01/01/19 11:40 WBC 17.5 H RBC 4.08 Hgb 12.0 Hct 36.4 MCV 89.2 MCH 29.3 MCHC 32.9 RDW 20.6 H Plt Count 265 MPV 11.0 Lab - Chemistry Results 12/31/18 12/31/18 01/01/19 17:17 20:14 03:28 Sodium Potassium Chloride Carbon Dioxide Anion Gap BUN Creatinine Estimated GFR POC Glucose 275 H 228 H 119 H Random Glucose Calcium 01/01/19 01/01/19 01/01/19 07:50 11:40 11:43 Sodium 140 Potassium 3.6 Chloride 106 Carbon Dioxide 27.0 Anion Gap 7 BUN 16 Creatinine 1.27 H Estimated GFR 40 L POC Glucose 94 231 H Random Glucose 234 H Calcium 9.0 D 01/01/19 01/01/19 01/02/19 17:26 21:37 03:49 Sodium Potassium Chloride Carbon Dioxide Anion Gap BUN Creatinine Estimated GFR POC Glucose 325 H 257 H 216 H Random Glucose Calcium 01/02/19 01/02/19 01/02/19 07:18 10:31 12:49 Sodium 142 Potassium 4.1 Chloride 108 H Carbon Dioxide 24.1 Anion Gap 10 BUN 19 H Creatinine 1.33 H Estimated GFR 38 L POC Glucose 114 H 228 H Random Glucose 163 H Calcium 8.7 Imaging: ITS Impressions Chest X-Ray 12/26/18 18:36 CONCLUSION: Cardiomegaly with minimal basilar atelectasis or scarring. Venous Doppler Study 12/26/18 19:49 CONCLUSION: No evidence of left lower extremity DVT. Chest CTA 12/26/18 20:28 CONCLUSION: 1. Negative for pulmonary embolic disease. Moderate to severe coronary artery calcifications. No lung consolidation. Minimal basilar atelectasis or scarring. Physical Exam: PHYSICAL EXAMINATION: GENERAL: Patient is awake and alert and oriented. HEENT: No icterus. Oropharynx: Moist mucosa. No visible lesions. NECK: Supple. No adenopathy. LUNGS: Clear breath sounds. HEART: Normal S1, S2. Irregular rhythm. No audible murmurs. ABDOMEN: Bowel sounds present. Soft, no tenderness. EXTREMITIES: No clubbing, cyanosis or edema. Hyperemia at both feet and tibia. Pulses are intact at the lower extremities. SKIN: No diffuse rash. NEUROLOGIC: No gross focal finding. PSYCHIATRIC: Calm and cooperative. Assessment and Plan - Plan IMPRESSION: 1. Bacteremia. No clear etiology for the bacteremia at this time. One blood culture identified as Staphylococcus coagulase negative. The other 2 bottles a different staph morphologies. This was likely pseudo- bacteremia. 2. Urinary tract infection. The repeat urine culture has ESBL E. coli. Patient with history of chronic UTI. 3. Diabetes mellitus. 4. Diarrhea. C. difficile toxin is negative. RECOMMENDATIONS: 1. Discontinue piperacillin tazobactam. She has noted allergy to penicillin and tazobactam and the ESBL E. coli is best treated with carbepenem. 2. Begin ertapenem. 3. Repeat the urine culture on Wednesday morning to check for eradication.
[2019-01-03] MEDS: Insulin NovoLOG Aspart Correctional Sugar Inj SQ SCH ×5 (03:01→20:52)
[2019-01-03] MEDS: Levothyroxine 150 MCG Tablet PO SCH (06:06)
[2019-01-03] MEDS: Tolterodine Tartrate LA 2 MG Capsule PO SCH (09:34)
[2019-01-03] MEDS: Senna/Docusate Sodium 8.6/50 MG Tablet PO SCH ×2 (09:35→20:51)
[2019-01-03] MEDS: Famotidine 20 MG Tablet PO SCH ×2 (09:35→20:50)
[2019-01-03] MEDS: Ferrous Sulfate 325 MG Tablet PO SCH (09:35)
[2019-01-03] MEDS: Digoxin 125 MCG Tablet PO SCH (09:36)
[2019-01-03] MEDS: predniSONE 5 MG Tablet PO SCH (09:36)
[2019-01-03] MEDS: Gabapentin 300 MG Capsule PO SCH ×2 (09:36→20:50)
[2019-01-03] MEDS: Ertapenem Inj 500 MG in Sodium Chlor 0.9% Inj 100 ML IV.SIG SCH (09:47)
[2019-01-03 09:59] LABS: Baso # (Auto) 0.1 th/mm3 (0.0-0.2); Baso % (Auto) 0.9 % (0.0-2.0); Eos # (Auto) 0.6 th/mm3 (0.0-0.4); Hematocrit 34.9 % (35.0-46.0); Hemoglobin 11.2 gm/dL (11.6-15.3); Lymph # (Auto) 2.7 th/mm3 (1.0-4.8); Lymph % (Auto) 22.2 % (9.0-44.0); Mean Corpuscular HGB Conc 32.1 % (32.0-36.0); Mean Corpuscular Hemoglobin 28.3 pg (27.0-34.0); Mean Corpuscular Volume 88.2 fL (80.0-100.0); Mean Platelet Volume 11.1 fL (7.0-11.0); Mono # (Auto) 0.8 th/mm3 (0.0-0.9); Mono % (Auto) 6.4 % (0.0-8.0); Neut # (Auto) 8.1 th/mm3 (1.8-7.7); Neut % (Auto) 65.5 % (16.0-70.0); Platelet Count 306 th/mm3 (150-450); Red Blood Count 3.96 mil/mm3 (4.00-5.30); Red Cell Distribution Width 20.1 % (11.6-17.2); White Blood Count 12.4 th/mm3 (4.0-11.0)
--- NOTE | 2019-01-03 10:03 | P.PNIM ---
Subjective Interval history: Follow-up for UTI No overnight events, no fever or chills. No urinary symptoms, having soft stools but not diarrhea. Denies any abdominal pain. Blood work pending Physical Exam Vital signs: Vital Signs 01/02/19 10:00 01/02/19 12:10 01/02/19 16:45 Temperature 96.9 F L 97.3 F L Pulse Rate 64 78 59 L Respiratory Rate 17 17 Blood Pressure 132/58 L 143/66 H Pulse Oximetry 96 01/02/19 18:00 01/02/19 20:00 01/02/19 22:00 Temperature 96.4 F L Pulse Rate 65 73 72 Respiratory Rate 18 Blood Pressure 171/73 H Pulse Oximetry 96 01/03/19 00:00 01/03/19 02:00 01/03/19 04:00 Temperature 97.0 F L 98.1 F Pulse Rate 74 86 76 Respiratory Rate 18 18 Blood Pressure 152/69 H 147/63 H Pulse Oximetry 97 96 01/03/19 06:00 Temperature Pulse Rate 86 Respiratory Rate Blood Pressure Pulse Oximetry Intake & Output 01/02/19 01/03/19 01/03/19 18:59 06:59 18:59 Intake Total 2250 / 2250 300 / 300 Balance 2250 / 2250 300 / 300 Weight 68.7 kg Intake: IV 1050 / 1050 100 / 100 NS Inj 1,000 ML @ 42 mls/hr IV. 1000 / 1000 CONT .[id number] [facility] Rx#:[id number] INVanz Inj 500 MG In NS Inj 100 100 / 100 ML @ 200 mls/hr IV.SIG Q24H [facility] Rx#:[id number] Zosyn 3.375 GM Premix 3.375 gm 50 / 50 In 50 ml @ 100 mls/hr IV.SIG Q6H [facility] Rx#:[id number] Oral 1200 / 1200 Oral Supplement 200 / 200 Other: # Voids 5 2 Date of Last Bowel Movement 01/02/19 01/03/19 # Bowel Movements 1 1 Narrative: Not in distress, well-nourished, looks stated age Clear to auscultation and symmetric bilaterally, normal respiratory effort. Normal bowel sounds, soft, non-tender, nondistended, no guarding. Extremities without clubbing, cyanosis, or edema. No rash of generalized distribution. Skin is warm and dry. AAO x3, no cranial nerve deficits, moves all 4 extremities, no focal neurologic deficits Results Labs CBC & Chem 7: 01/01/19 11:40 01/02/19 10:31 Labs: Microbiology 12/28/18 20:10 Blood - Peripheral Aerobic Blood Culture - Final No growth in 5 days 12/28/18 20:10 Blood - Peripheral Anaerobic Blood Culture - Final No growth in 5 days 12/28/18 20:15 Blood - Peripheral Aerobic Blood Culture - Final No growth in 5 days 12/28/18 20:15 Blood - Peripheral Anaerobic Blood Culture - Final No growth in 5 days Assessment and Plan Plan 83-year-old female admitted with acute encephalopathy. Sepsis secondary to UTI. Sepsis secondary to UTI, coagulase-negative staph bacteremia - Patient recently hospitalized at [facility] where she was treated for urosepsis with Rocephin, has been on 250 mg of Cipro daily for chronic UTI.Repeat blood culture now 72 hours, still negative. Vancomycin stopped per infectious disease. Urine culture however growing E. coli, ESBL, not sensitive to ceftriaxone, sensitive to Zosyn. Patient had worsening leukocytosis and kidney function. Zosyn switched to Ertapenem (01/02--), infectious disease following, probiotics. Blood work pending today. Acute encephalopathy: Secondary to sepsis as above. Mental status improved and is at baseline. Acute kidney injury-improved with IVF, now worsening again, hold Lasix, hold losartan, BMP pending. Diabetes mellitus-BG's better. On metformin at home, sliding scale insulin, metformin on hold Atrial fibrillation/subtherapeutic on Coumadin -Continue home metoprolol, digoxin, Coumadin. Pharmacy monitoring INR, follow- up digoxin level. Hypertension/hyperlipidemia/GERD/hypothyroidism/neuropathy-Continue metoprolol, Synthroid, gabapentin, prednisone GI prophylaxis: Stool softener PRN constipation. DVT PPx: Heparin Dispo: After cleared by infectious disease. Progress Note: Quality VTE Deep Vein Thrombosis/Pulmonary Embolism Present on Admission: No
[2019-01-03 10:05] LABS: Prothrombin Time 20.6 sec (9.8-11.6)
--- NOTE | 2019-01-03 10:20 | P.DCO ---
Diagnosis (1) UTI (urinary tract infection): Status: Acute (2) Sepsis: Status: Acute Physical Therapy Order: Evaluate and treat Home Health Nursing Order: Signs/symptoms of disease process and Nursing assessment with vital signs Case Management Consult Case Management Consult-Home Health: Yes I have seen patient Valencia Spence on 01/03/19. My clinical findings support the need for the requested home health care services because: Limited mobility due to disease progression, Limited ability to care for self and High risk of falls I certify that my clinical findings support that this patient is homebound because: _ (1) UTI (urinary tract infection) Qualifiers: Encounter type: Hematuria presence: Indwelling urinary catheter type: Urinary tract infection type: (2) Sepsis Qualifiers: Sepsis type:
[2019-01-03 10:28] LABS: Calcium 9.3 mg/dL (8.5-10.1); Carbon Dioxide 28.1 meq/L (21.0-32.0); Potassium 4.2 meq/L (3.5-5.1)
[2019-01-03 10:45] LABS: Digoxin 0.9 ng/mL (0.8-2.0)
[2019-01-03] MEDS: Sod Chloride 0.9% Inj 1,000 ML IV.CONT SCH ×2 (12:10→15:05)
--- NOTE | 2019-01-03 13:08 | P.PNID ---
Subjective Remarks: Patient is awake and alert. Denies chills. Denies abdominal pain. No fever. Repeat urine culture has ESBL E. coli. Patient reports that she never gets any symptoms when she had the urine infection. She has bladder stimulator which has been in place for some time now. She cannot recall how long. Blood cultures from 12/26 showing different morphologies of coag negative staph. Blood culture repeated on 12/28 has no growth. 83-year-old white female who was brought to the emergency department with altered mental status on 12/26/2018. The patient was also noted to have shortness of breath and was lethargic and sleeping most of the day. Her daughter brought her to the emergency department for evaluation. In the emergency department, the heart rate was slightly elevated at 102. Her white count was elevated at 18.4. Urinalysis was performed and it showed many white blood cell clumps. The urine culture has mixed amilcar. Past Medical History: PAST MEDICAL HISTORY: Hypertension, hypothyroidism, gastroesophageal reflux disease, diabetes mellitus type 2, chronic UTI, CHF, atrial fibrillation, neuropathy, history of myocardial infarction, history of cardiac catheterization and cardiac stent, history of appendectomy, history of tonsillectomy, history of implantation of urinary electronic stimulator device. Allergies/Adverse Reactions: Allergies ketorolac Allergy (Severe, Verified 12/27/18 00:55) Hives piperacillin Allergy (Severe, Verified 12/27/18 00:55) Anaphylaxis tazobactam Allergy (Severe, Verified 12/27/18 00:55) Anaphylaxis Objective Vital Signs 01/02/19 16:45 01/02/19 18:00 01/02/19 20:00 Temperature 97.3 F L 96.4 F L Pulse Rate 59 L 65 73 Respiratory Rate 17 18 Blood Pressure 143/66 H 171/73 H Pulse Oximetry 96 96 01/02/19 22:00 01/03/19 00:00 01/03/19 02:00 Temperature 97.0 F L Pulse Rate 72 74 86 Respiratory Rate 18 Blood Pressure 152/69 H Pulse Oximetry 97 01/03/19 04:00 01/03/19 06:00 01/03/19 08:30 Temperature 98.1 F 97.6 F Pulse Rate 76 86 62 Respiratory Rate 18 17 Blood Pressure 147/63 H 199/84 H Pulse Oximetry 96 97 01/03/19 10:00 01/03/19 12:18 Temperature 97.7 F Pulse Rate 86 66 Respiratory Rate 17 Blood Pressure 144/80 H Pulse Oximetry 96 Intake & Output 01/02/19 01/03/19 01/03/19 18:59 06:59 18:59 Intake Total 2250 / 2250 300 / 300 1100 / 1100 Balance 2250 / 2250 300 / 300 1100 / 1100 Weight 68.7 kg Intake: IV 1050 / 1050 100 / 100 1100 / 1100 NS Inj 1,000 ML @ 84 mls/hr IV. 1000 / 1000 1000 / 1000 CONT .[id number] [facility] Rx#:[id number] INVanz Inj 500 MG In NS Inj 100 100 / 100 ML @ 200 mls/hr IV.SIG Q24H [facility] Rx#:[id number] INVanz Inj 500 MG In NS Inj 100 100 / 100 ML @ 200 mls/hr IV.SIG Q24H [facility] Rx#:[id number] Zosyn 3.375 GM Premix 3.375 gm 50 / 50 In 50 ml @ 100 mls/hr IV.SIG Q6H [facility] Rx#:[id number] Oral 1200 / 1200 Oral Supplement 200 / 200 Other: # Voids 5 2 Date of Last Bowel Movement 01/02/19 01/03/19 # Bowel Movements 1 1 12/28/18 20:10 Blood - Peripheral Aerobic Blood Culture - Final No growth in 5 days 12/28/18 20:10 Blood - Peripheral Anaerobic Blood Culture - Final No growth in 5 days 12/28/18 20:15 Blood - Peripheral Aerobic Blood Culture - Final No growth in 5 days 12/28/18 20:15 Blood - Peripheral Anaerobic Blood Culture - Final No growth in 5 days 12/30/18 13:51 Catheterized Urine Urine Culture - Final Escherichia coli ESBL positive 12/26/18 18:51 Blood - Peripheral Aerobic Blood Culture - Final No growth in 5 days 12/26/18 18:51 Blood - Peripheral Anaerobic Blood Culture - Final Staphylococcus capitis-capitis Lab - Hematology Results 01/03/19 09:25 WBC 12.4 H RBC 3.96 L Hgb 11.2 L Hct 34.9 L MCV 88.2 MCH 28.3 MCHC 32.1 RDW 20.1 H Plt Count 306 MPV 11.1 H Neut % (Auto) 65.5 Lymph % (Auto) 22.2 Emmons % (Auto) 6.4 Eos % (Auto) 5.0 H Baso % (Auto) 0.9 Neut # (Auto) 8.1 H Lymph # (Auto) 2.7 Emmons # (Auto) 0.8 Eos # (Auto) 0.6 H Baso # (Auto) 0.1 WBC Differential . Differential Comment Auto diff final Lab - Chemistry Results 01/01/19 01/01/19 01/02/19 17:26 21:37 03:49 Sodium Potassium Chloride Carbon Dioxide Anion Gap BUN Creatinine Estimated GFR POC Glucose 325 H 257 H 216 H Random Glucose Calcium 01/02/19 01/02/19 01/02/19 07:18 10:31 12:49 Sodium 142 Potassium 4.1 Chloride 108 H Carbon Dioxide 24.1 Anion Gap 10 BUN 19 H Creatinine 1.33 H Estimated GFR 38 L POC Glucose 114 H 228 H Random Glucose 163 H Calcium 8.7 01/02/19 01/02/19 01/03/19 17:14 22:24 03:00 Sodium Potassium Chloride Carbon Dioxide Anion Gap BUN Creatinine Estimated GFR POC Glucose 217 H 217 H 168 H Random Glucose Calcium 01/03/19 01/03/19 01/03/19 07:40 09:25 12:08 Sodium 142 Potassium 4.2 Chloride 107 Carbon Dioxide 28.1 Anion Gap 7 BUN 18 Creatinine 1.12 H Estimated GFR 47 L POC Glucose 128 H 145 H Random Glucose 106 Calcium 9.3 Imaging: ITS Impressions Chest X-Ray 12/26/18 18:36 CONCLUSION: Cardiomegaly with minimal basilar atelectasis or scarring. Venous Doppler Study 12/26/18 19:49 CONCLUSION: No evidence of left lower extremity DVT. Chest CTA 12/26/18 20:28 CONCLUSION: 1. Negative for pulmonary embolic disease. Moderate to severe coronary artery calcifications. No lung consolidation. Minimal basilar atelectasis or scarring. Physical Exam: PHYSICAL EXAMINATION: GENERAL: Patient in no acute distress. Awake and alert. HEENT: No icterus. Oropharynx: Moist mucosa. No visible lesions. NECK: Supple. No adenopathy. LUNGS: Clear breath sounds. HEART: Normal S1, S2. Irregular rhythm. No audible murmurs. ABDOMEN: Bowel sounds present. Soft, no tenderness. EXTREMITIES: No clubbing, cyanosis or edema. Hyperemia at both feet and tibia. Pulses are intact at the lower extremities. SKIN: No diffuse rash. NEUROLOGIC: No gross focal finding. PSYCHIATRIC: Calm and cooperative. Assessment and Plan - Plan IMPRESSION: 1. Bacteremia. No clear etiology for the bacteremia at this time. One blood culture identified as Staphylococcus coagulase negative. The other 2 bottles a different staph morphologies. This was likely pseudo- bacteremia. 2. Urinary tract infection. The repeat urine culture has ESBL E. coli. Patient with history of chronic UTI. The UTIs may be related to bladder stimulator which the patient has in place but has been turned off for some time. 3. Diabetes mellitus. 4. Diarrhea. C. difficile toxin is negative. RECOMMENDATIONS: 1. Continue ertapenem for the ESBL E. coli in the urine. 2. Obtain a urinalysis via straight cath culture if indicated. 3. Urology evaluation to see if the bladder stimulator should be removed because it is not working and potentially could be causing the recurrent urine infections. Further disposition once the culture becomes available and urology evaluation.
[2019-01-03 14:25] LABS: Bilirubin,Urine Negative (Negative); Clarity,Urine Clear (Clear); Color,Urine Straw (Yellw/Straw); Glucose,Urine (UA) Negative (Negative); Leukocyte Esterase,Urine Negative (Negative); Nitrite,Urine Negative (Negative); Specific Gravity,Urine 1.005 (1.002-1.035)
--- NOTE | 2019-01-03 16:09 | MB ---
cc: Abad Luke DO DATE: 01/03/2019 HISTORY OF PRESENT ILLNESS: This is a pleasant 83-year-old female who was admitted with altered mental status who has a history of recurrent urinary tract infections. She states that she gets urinary tract infections approximately every 3 months. She was recently admitted while visiting in [place] for another episode of altered mental status and urinary tract infections. She states that she notes that she does not completely empty her bladder which she has been doing this for quite some time. She denies a weak stream or straining to urinate. She denies constipation. She does have a history of an InterStim placed many years ago; however, the deprogrammed it since it was not working. Her urine culture from 10/29/2018 was noted to be Escherichia coli extended-spectrum beta-lactamase positive. She does note a history of nocturia every 1 to 2 at nighttime. PAST MEDICAL HISTORY: Includes hypertension, hypothyroidism, GERD, type 2 diabetes, CHF, AFib peripheral neuropathy, coronary artery disease, chronic urinary tract infections. PAST SURGICAL HISTORY: Noted for cardiac stent placement, appendectomy, tonsillectomy, InterStim device many years ago. ALLERGIES: ZOSYN AND KETOROLAC. MEDICATIONS: Please refer to the chart. SOCIAL HISTORY: She presently denies smoking, drinking or using drugs, but was a former smoker. FAMILY HISTORY: Noncontributory. REVIEW OF SYSTEMS: All systems have been reviewed and pertinent features mentioned in the history of present illness. PHYSICAL EXAMINATION: VITAL SIGNS: Temperature 97.7, heart rate 86, respiratory rate 17, 144/80. GENERAL: She is a well-developed, well-nourished 83-year-old female in no acute distress. HEENT: Normocephalic, atraumatic. Pupils equal, round, reactive to light. Extraocular movements intact. NECK: Supple. HEART: Regular rate and rhythm. LUNGS: Clear. ABDOMEN: Soft, nontender, nondistended. PELVIC: Normal female external genitalia is noted. EXTREMITIES: Show no cyanosis, clubbing, or edema. NEUROLOGIC: Cranial nerves 2 through 12 are intact. LABORATORY DATA: White count 12.4, hemoglobin 11.2, hematocrit 34.9, platelet count of 306. Sodium 142, potassium 4.2, chloride 107, CO2 28.1, BUN of 18, creatinine 1.12, glucose of 145. Urinalysis on 01/03/2019 showed small blood, 1 red cell, 4 white cells. Again, urine cultures showed Escherichia coli, extended-spectrum beta-lactamase positive. ASSESSMENT AND PLAN: This is an 83-year-old female with history of chronic urinary tract infections, admitted with altered mental status and sepsis. The patient notes incomplete bladder emptying, which is the reason she gets urinary tract infections, recommend holding Detrol as this will inhibit her bladder from denita and will start urecholine 25 mg p.o. t.i.d., which will help stimulate her bladder function. We will need to obtain a renal bladder ultrasound to check the postvoid residuals. Also, check postvoid residuals with the bladder scanner on the floor. Suprapubic tube was discussed and the patient was not interested in this. She states that she would probably not be able to perform clean intermittent catheterization, which would be the best option for this problem. The other option would be to start her on suppressive antibiotics to eliminate chronicity of urinary tract infections. We will need to discuss this with her and her daughter as well as infectious disease to see if this is a viable option for her in the future. Thank you for the consult and allowing me to participate in the care of this patient. DO LACEY Guzman/bean , 03:27 PM , 03:37 PM
[2019-01-03] MEDS ORDERED: Lisinopril 20 MG Tablet PO ONE (19:00)
--- NOTE | 2019-01-03 19:24 | US ---
EXAM DATE: 01/03/2019 6:55 PM EST AGE/SEX: 83 years / Female INDICATIONS: Elevated lab values. CLINICAL DATA: This is the patient's initial encounter. Patient reports that signs and symptoms have been present for 1 day and indicates a pain score of 0/10. MEDICAL/SURGICAL HISTORY: Congestive heart failure. Gastroesophageal reflux disease. Hyperten merna. Atrial fibrillation. Chronic UTI. Diabetes. Hypothyroidism. Myocardial infarction. Neuropathy. Hysterectomy. Appendectomy. Tonsillectomy. Cardiac catheterization. Urinary electronic stimulato r device. [place] [facility] [place]AST[place] 01/18/2012. . MEASUREMENTS: Right Kidney:__11.0 x 4.4 x 5.2 cm Left Kidney:__9.9 x 4.1 x 5.2 cm FINDINGS: Right Kidney: Normal echogenicity and cortical thickness. No mass or hydronephrosis. Left Kidney: Normal echogenicity and cortical thickness. No mass or hydronephrosis. Bladder: Within normal limits given the degree of distension. Other: None. CONCLUSION: 1. Normal renal sonogram. Electronically signed by: Petey Curtis MD Board Certified Radiologist 01/03/2019 7:23 PM EST
[2019-01-04] MEDS: Sod Chloride 0.9% Inj 1,000 ML IV.CONT SCH ×2 (03:22→12:49)
[2019-01-04] MEDS: Insulin NovoLOG Aspart Correctional Sugar Inj SQ SCH ×4 (03:30→17:37)
[2019-01-04] MEDS: Levothyroxine 150 MCG Tablet PO SCH (05:00)
[2019-01-04] MEDS ORDERED: Lisinopril 20 MG Tablet PO SCH (09:00)
[2019-01-04 09:25] LABS: INR 1.8 Ratio; Prothrombin Time 18.6 sec (9.8-11.6)
[2019-01-04 09:51] LABS: Calcium 9.3 mg/dL (8.5-10.1); Carbon Dioxide 26.8 meq/L (21.0-32.0); Potassium 4.3 meq/L (3.5-5.1)
[2019-01-04] MEDS: Famotidine 20 MG Tablet PO SCH (10:06)
[2019-01-04] MEDS: predniSONE 5 MG Tablet PO SCH (10:07)
[2019-01-04] MEDS: Gabapentin 300 MG Capsule PO SCH (10:07)
[2019-01-04] MEDS: Ferrous Sulfate 325 MG Tablet PO SCH (10:07)
[2019-01-04] MEDS: Senna/Docusate Sodium 8.6/50 MG Tablet PO SCH (10:08)
--- NOTE | 2019-01-04 10:31 | P.PNURO ---
Subjective Patient symptoms today: Pt seen and examined. Feels tired. Had elevated B/P last night. Voiding frequently. R/B sono was unremarkable. Objective Vital Signs: Vital Signs 01/03/19 12:18 01/03/19 13:00 01/03/19 16:09 Temperature 97.7 F Pulse Rate 66 86 64 Respiratory Rate 17 Blood Pressure 144/80 H Pulse Oximetry 96 01/03/19 16:10 01/03/19 20:00 01/03/19 21:00 Temperature 97.5 F L 97.4 F L Pulse Rate 66 62 63 Respiratory Rate 17 18 Blood Pressure 203/79 H 186/79 H Pulse Oximetry 98 97 01/04/19 00:00 01/04/19 01:00 01/04/19 04:00 Temperature 96.1 F L Pulse Rate 61 61 Respiratory Rate 17 Blood Pressure 180/74 H 186/81 H Pulse Oximetry 96 01/04/19 05:00 01/04/19 09:00 Temperature Pulse Rate 59 L 61 Respiratory Rate Blood Pressure 174/78 H Pulse Oximetry Intake & Output 01/03/19 01/04/19 01/04/19 18:59 06:59 18:59 Intake Total 2300 / 2300 1220 / 1220 Output Total 1000 / 1000 Balance 2300 / 2300 220 / 220 Weight 68.3 kg Intake: IV 1100 / 1100 1000 / 1000 NS Inj 1,000 ML @ 84 mls/hr IV. 1000 / 1000 1000 / 1000 CONT .[id number] [facility] Rx#:[id number] INVanz Inj 500 MG In NS Inj 100 100 / 100 ML @ 200 mls/hr IV.SIG Q24H [facility] Rx#:[id number] Oral 1200 / 1200 220 / 220 Output: Urine 1000 / 1000 Other: # Voids 6 Date of Last Bowel Movement 01/03/19 01/04/19 01/03/19 # Bowel Movements 1 1 Result Diagrams: 01/03/19 09:25 01/04/19 08:46 Imaging: Impressions Abdomen/Bladder Ultrasound 01/03/19 00:00 CONCLUSION: 1. Normal renal sonogram. Medications and IVs: Active Medications Generic Name Dose Route Start Last Admin Trade Name Freq PRN Reason Stop Dose Admin Acetaminophen 650 mg 12/29/18 11:32 12/29/18 15:06 Tylenol PO 650 mg Q4H PRN Administration Pain 1-10 or temp >100.4 Al Hydroxide/Mg Hydroxide 30 ml 12/27/18 00:07 Milk Of Magnesia Liq PO Q12H PRN Mild Constipation Aspirin 81 mg 12/27/18 09:00 01/04/19 10:07 Ecotrin PO 81 mg DAILY [facility] Administration Atorvastatin Calcium 40 mg 12/27/18 09:00 01/04/19 10:06 Lipitor PO 40 mg DAILY [facility] Administration Bethanechol Chloride 25 mg 01/03/19 18:00 01/04/19 10:07 Urecholine PO 25 mg TID [facility] Administration Bisacodyl 10 mg 12/27/18 00:07 Dulcolax Supp RECTAL DAILY PRN SEVERE CONSITIPATION Dextrose 50 ml 12/27/18 00:07 D50w Vial IV.PUSH UNSCH PRN PER HYPOGLYCEMIA PROTOCOL Digoxin 125 mcg 12/27/18 09:00 01/03/19 09:36 Lanoxin PO 125 mcg DAILY [facility] Administration Enalaprilat 1.25 mg 01/03/19 18:48 01/04/19 04:46 Vasotec Inj IV.PUSH 1.25 mg Q6H PRN Administration SYS BP GREATER THAN 160 MMHG Famotidine 10 mg 12/28/18 21:00 01/04/19 10:06 Pepcid PO 10 mg BID [facility] Administration Ferrous Sulfate 325 mg 12/27/18 09:00 01/04/19 10:07 Ferosul PO 325 mg DAILY [facility] Administration Furosemide 20 mg 12/30/18 09:00 01/01/19 08:41 Lasix PO 20 mg DAILY [facility] Administration Gabapentin 600 mg 12/27/18 09:00 01/04/19 10:07 Neurontin PO 600 mg BID [facility] Administration Glucagon 1 mg 12/27/18 00:07 Glucagon Inj OTHER PRN PRN for Hypoglycemia Protocol Sodium Chloride 1,000 mls @ 84 mls/hr 01/01/19 14:20 01/04/19 03:22 Ns Inj IV.CONT 84 mls/hr .[id number] [facility] Administration Ertapenem 500 mg/ Sodium 100 mls @ 200 mls/hr 01/03/19 09:00 01/03/19 10:57 Chloride IV.SIG Infused Q24H [facility] Infusion Insulin Aspart 0 unit 12/27/18 03:00 01/04/19 10:16 Novolog Insulin Correctional Sugar Inj SQ Not Given ACHS AND 3AM [facility] Protocol Lactobacillus Acidophilus 1 gm 12/31/18 18:00 01/04/19 10:08 Lactinex Pkt PO 1 gm TID [facility] Administration Lactulose 30 ml 12/27/18 00:07 Lactulose Liq PO DAILY PRN SEVERE CONSITIPATION Leflunomide 20 mg 12/27/18 09:00 01/04/19 10:08 Arava PO 20 mg DAILY [facility] Administration Levothyroxine Sodium 150 mcg 12/27/18 06:00 01/04/19 05:00 Synthroid PO 150 mcg DAILY@0600 [facility] Administration Lisinopril 20 mg 01/04/19 09:00 01/04/19 10:08 Prinivil PO 20 mg DAILY [facility] Administration Losartan Potassium 25 mg 12/29/18 09:00 01/02/19 09:00 Cozaar PO 25 mg DAILY [facility] Administration Metformin HCl 500 mg 01/01/19 18:00 01/02/19 09:04 Glucophage PO 500 mg BIDPC [facility]T Administration Metoprolol Succinate 25 mg 12/27/18 09:00 01/04/19 10:06 Toprol Xl PO 25 mg DAILY [facility] Administration Miscellaneous 1 each 12/28/18 12:00 Pill Splitter OTHER UNSCH [facility] Ondansetron HCl 4 mg 12/27/18 00:07 Zofran Inj IV.PUSH Q6H PRN NAUSEA OR VOMITING Pantoprazole Sodium 40 mg 12/27/18 09:00 01/04/19 10:08 Protonix PO 40 mg DAILY [facility] Administration Pharmacy Profile Note 1 each 12/27/18 00:11 Coumadin Consult Pharmacy OTHER UNSCH PRN PHARMACY DOCUMENTATION Prednisone 5 mg 12/27/18 09:00 01/04/19 10:07 Deltasone PO 5 mg DAILY [facility] Administration Senna/Docusate Sodium 1 tab 12/27/18 09:00 01/04/19 10:08 Valentina-Colace PO 1 tab BID [facility] Administration Sennosides 17.2 mg 12/27/18 00:07 Senokot PO Q12H PRN Moderate Constipation Sodium Chloride 2 ml 12/27/18 09:00 01/04/19 10:08 Ns Flush IV.FLUSH 2 ml BID [facility] Administration Sodium Chloride 2 ml 12/27/18 00:07 Ns Flush IV.FLUSH PRN PRN FLUSH AFTER USING IV ACCESS Temazepam 15 mg 12/27/18 00:10 12/30/18 20:43 Restoril PO 15 mg HS PRN Administration Insomnia Warfarin Sodium 4 mg 01/03/19 16:00 01/03/19 15:18 Coumadin PO 4 mg DAILY@1600 [facility] Administration Objective Remarks: Abd:soft,nt,nd Assessment and Plan - Plan 83 y.o. female with h/o recurrent UTI's. Recommend suppressive abx as outpt for UTI prevention.
--- NOTE | 2019-01-04 11:07 | P.PNIM ---
Subjective Interval history: Follow-up for UTI No overnight events, no fever or chills. Still no urinary symptoms. Seen by urology. Physical Exam Vital signs: Vital Signs 01/03/19 12:18 01/03/19 13:00 01/03/19 16:09 Temperature 97.7 F Pulse Rate 66 86 64 Respiratory Rate 17 Blood Pressure 144/80 H Pulse Oximetry 96 01/03/19 16:10 01/03/19 20:00 01/03/19 21:00 Temperature 97.5 F L 97.4 F L Pulse Rate 66 62 63 Respiratory Rate 17 18 Blood Pressure 203/79 H 186/79 H Pulse Oximetry 98 97 01/04/19 00:00 01/04/19 01:00 01/04/19 04:00 Temperature 96.1 F L Pulse Rate 61 61 Respiratory Rate 17 Blood Pressure 180/74 H 186/81 H Pulse Oximetry 96 01/04/19 05:00 01/04/19 09:00 Temperature Pulse Rate 59 L 61 Respiratory Rate Blood Pressure 174/78 H Pulse Oximetry Intake & Output 01/03/19 01/04/19 01/04/19 18:59 06:59 18:59 Intake Total 2300 / 2300 1220 / 1220 Output Total 1000 / 1000 Balance 2300 / 2300 220 / 220 Weight 68.3 kg Intake: IV 1100 / 1100 1000 / 1000 NS Inj 1,000 ML @ 84 mls/hr IV. 1000 / 1000 1000 / 1000 CONT .[id number] [facility] Rx#:[id number] INVanz Inj 500 MG In NS Inj 100 100 / 100 ML @ 200 mls/hr IV.SIG Q24H [facility] Rx#:[id number] Oral 1200 / 1200 220 / 220 Output: Urine 1000 / 1000 Other: # Voids 6 Date of Last Bowel Movement 01/03/19 01/04/19 01/03/19 # Bowel Movements 1 1 Narrative: Not in distress, well-nourished, looks stated age Clear to auscultation and symmetric bilaterally, normal respiratory effort. Normal bowel sounds, soft, non-tender, nondistended, no guarding. Extremities without clubbing, cyanosis, or edema. No rash of generalized distribution. Skin is warm and dry. AAO x3, no cranial nerve deficits, moves all 4 extremities, no focal neurologic deficits Results Labs CBC & Chem 7: 01/03/19 09:25 01/04/19 08:46 Imaging Imaging: Impressions Abdomen/Bladder Ultrasound 01/03/19 00:00 CONCLUSION: 1. Normal renal sonogram. Assessment and Plan (1) UTI (urinary tract infection): Code(s): N39.0 - Urinary tract infection, site not specified Status: Acute (2) Sepsis: Code(s): A41.9 - Sepsis, unspecified organism Status: Acute Plan 83-year-old female admitted with acute encephalopathy. Sepsis secondary to UTI. Sepsis secondary to UTI, coagulase-negative staph bacteremia - Patient recently hospitalized at [facility] where she was treated for urosepsis with Rocephin, has been on 250 mg of Cipro daily for chronic UTI.Repeat blood culture now 72 hours, still negative. Vancomycin stopped per infectious disease likely contaminant. Urine culture however growing E. coli, ESBL, not sensitive to ceftriaxone, sensitive to Zosyn. Patient had worsening leukocytosis and kidney function. Zosyn switched to Ertapenem (01/02--), infectious disease following, probiotics. Leukocytosis improving. UA via straight cath appears negative. Incomplete bladder emptying-urology consulted, likely is causing frequent UTIs. Hold Detrol, start Urecholine 3 times a day per urology, renal ultrasound negative post void. Check postvoid residuals with a bladder scan per urology. Ideally needs intermittent catheterization but patient cannot perform this. Recommends long-term suppressive antibiotic therapy, will defer to infectious disease, possibly Macrobid if kidney function remains stable. Acute encephalopathy: Secondary to sepsis as above. Mental status improved and is at baseline. Acute kidney injury-improved with IVF, worsened again, Lasix, lisinopril and losartan were stopped. Creatinine improved with IVF. Stop IVF today, recheck BMP tomorrow. Diabetes mellitus-BG's better. On metformin at home, sliding scale insulin, metformin on hold Atrial fibrillation/subtherapeutic on Coumadin -Continue home metoprolol, digoxin, Coumadin. Pharmacy monitoring INR, digoxin level 0.9, INR is 1.8 Hypertension/hyperlipidemia/GERD/hypothyroidism/neuropathy-Continue metoprolol, Synthroid, gabapentin, prednisone, losartan and lisinopril stopped because of renal failure. Start Norvasc. GI prophylaxis: Stool softener PRN constipation. DVT PPx: Coumadin. Charged home with home health care once cleared by infectious disease Progress Note: Quality VTE Deep Vein Thrombosis/Pulmonary Embolism Present on Admission: No _ (1) UTI (urinary tract infection) Qualifiers: Encounter type: Hematuria presence: Indwelling urinary catheter type: Urinary tract infection type: (2) Sepsis Qualifiers: Sepsis type:
[2019-01-04] MEDS ORDERED: amLODIPine 5 MG Tablet PO SCH (11:15)
[2019-01-04] MEDS: Ertapenem Inj 500 MG in Sodium Chlor 0.9% Inj 100 ML IV.SIG SCH (11:19)
[2019-01-04] MEDS: Digoxin 125 MCG Tablet PO SCH (11:20)
--- NOTE | 2019-01-04 11:52 | P.PNID ---
Subjective Remarks: Patient is awake and alert. Denies chills. No fever. Reports good urine output. Repeat urinalysis is unremarkable. Patient reports that she never gets any symptoms when she had the urine infection. She has bladder stimulator which has been to the end of for some time now. She cannot recall how long. Urology consult noted. Blood cultures from 12/26 showing different morphologies of coag negative staph. Blood culture repeated on 12/28 has no growth. 83-year-old white female who was brought to the emergency department with altered mental status on 12/26/2018. The patient was also noted to have shortness of breath and was lethargic and sleeping most of the day. Her daughter brought her to the emergency department for evaluation. In the emergency department, the heart rate was slightly elevated at 102. Her white count was elevated at 18.4. Urinalysis was performed and it showed many white blood cell clumps. The urine culture has mixed amilcar. Past Medical History: PAST MEDICAL HISTORY: Hypertension, hypothyroidism, gastroesophageal reflux disease, diabetes mellitus type 2, chronic UTI, CHF, atrial fibrillation, neuropathy, history of myocardial infarction, history of cardiac catheterization and cardiac stent, history of appendectomy, history of tonsillectomy, history of implantation of urinary electronic stimulator device. Allergies/Adverse Reactions: Allergies ketorolac Allergy (Severe, Verified 12/27/18 00:55) Hives piperacillin Allergy (Severe, Verified 12/27/18 00:55) Anaphylaxis tazobactam Allergy (Severe, Verified 12/27/18 00:55) Anaphylaxis Objective Vital Signs 01/03/19 12:18 01/03/19 13:00 01/03/19 16:09 Temperature 97.7 F Pulse Rate 66 86 64 Respiratory Rate 17 Blood Pressure 144/80 H Pulse Oximetry 96 01/03/19 16:10 01/03/19 20:00 01/03/19 21:00 Temperature 97.5 F L 97.4 F L Pulse Rate 66 62 63 Respiratory Rate 17 18 Blood Pressure 203/79 H 186/79 H Pulse Oximetry 98 97 01/04/19 00:00 01/04/19 01:00 01/04/19 04:00 Temperature 96.1 F L Pulse Rate 61 61 Respiratory Rate 17 Blood Pressure 180/74 H 186/81 H Pulse Oximetry 96 01/04/19 05:00 01/04/19 08:00 01/04/19 09:00 Temperature 97.5 F L Pulse Rate 59 L 61 61 Respiratory Rate 16 Blood Pressure 174/78 H 142/70 H Pulse Oximetry 97 Intake & Output 01/03/19 01/04/19 01/04/19 18:59 06:59 18:59 Intake Total 2300 / 2300 1220 / 1220 Output Total 1000 / 1000 Balance 2300 / 2300 220 / 220 Weight 68.3 kg Intake: IV 1100 / 1100 1000 / 1000 NS Inj 1,000 ML @ 84 mls/hr IV. 1000 / 1000 1000 / 1000 CONT .[id number] [facility] Rx#:[id number] INVanz Inj 500 MG In NS Inj 100 100 / 100 ML @ 200 mls/hr IV.SIG Q24H [facility] Rx#:[id number] Oral 1200 / 1200 220 / 220 Output: Urine 1000 / 1000 Other: # Voids 6 Date of Last Bowel Movement 01/03/19 01/04/19 01/03/19 # Bowel Movements 1 1 12/28/18 20:10 Blood - Peripheral Aerobic Blood Culture - Final No growth in 5 days 12/28/18 20:10 Blood - Peripheral Anaerobic Blood Culture - Final No growth in 5 days 12/28/18 20:15 Blood - Peripheral Aerobic Blood Culture - Final No growth in 5 days 12/28/18 20:15 Blood - Peripheral Anaerobic Blood Culture - Final No growth in 5 days 12/30/18 13:51 Catheterized Urine Urine Culture - Final Escherichia coli ESBL positive Lab - Hematology Results 01/03/19 09:25 WBC 12.4 H RBC 3.96 L Hgb 11.2 L Hct 34.9 L MCV 88.2 MCH 28.3 MCHC 32.1 RDW 20.1 H Plt Count 306 MPV 11.1 H Neut % (Auto) 65.5 Lymph % (Auto) 22.2 Jewell % (Auto) 6.4 Eos % (Auto) 5.0 H Baso % (Auto) 0.9 Neut # (Auto) 8.1 H Lymph # (Auto) 2.7 Jewell # (Auto) 0.8 Eos # (Auto) 0.6 H Baso # (Auto) 0.1 WBC Differential . Differential Comment Auto diff final Lab - Chemistry Results 01/02/19 01/02/19 01/02/19 10:31 12:49 17:14 Sodium 142 Potassium 4.1 Chloride 108 H Carbon Dioxide 24.1 Anion Gap 10 BUN 19 H Creatinine 1.33 H Estimated GFR 38 L POC Glucose 228 H 217 H Random Glucose 163 H Calcium 8.7 01/02/19 01/03/19 01/03/19 22:24 03:00 07:40 Sodium Potassium Chloride Carbon Dioxide Anion Gap BUN Creatinine Estimated GFR POC Glucose 217 H 168 H 128 H Random Glucose Calcium 01/03/19 01/03/19 01/03/19 09:25 12:08 17:36 Sodium 142 Potassium 4.2 Chloride 107 Carbon Dioxide 28.1 Anion Gap 7 BUN 18 Creatinine 1.12 H Estimated GFR 47 L POC Glucose 145 H 214 H Random Glucose 106 Calcium 9.3 01/03/19 01/04/19 01/04/19 20:16 03:26 08:19 Sodium Potassium Chloride Carbon Dioxide Anion Gap BUN Creatinine Estimated GFR POC Glucose 282 H 140 H 101 Random Glucose Calcium 01/04/19 08:46 Sodium 144 Potassium 4.3 Chloride 110 H Carbon Dioxide 26.8 Anion Gap 7 BUN 15 Creatinine 1.02 H Estimated GFR 52 L POC Glucose Random Glucose 108 H Calcium 9.3 Imaging: ITS Impressions Chest X-Ray 12/26/18 18:36 CONCLUSION: Cardiomegaly with minimal basilar atelectasis or scarring. Venous Doppler Study 12/26/18 19:49 CONCLUSION: No evidence of left lower extremity DVT. Chest CTA 12/26/18 20:28 CONCLUSION: 1. Negative for pulmonary embolic disease. Moderate to severe coronary artery calcifications. No lung consolidation. Minimal basilar atelectasis or scarring. Abdomen/Bladder Ultrasound 01/03/19 00:00 CONCLUSION: 1. Normal renal sonogram. Physical Exam: PHYSICAL EXAMINATION: GENERAL: Patient in no acute distress. Awake and alert. HEENT: No icterus. Oropharynx: Moist mucosa. No visible lesions. NECK: Supple. No adenopathy. LUNGS: Breath sounds are clear. HEART: Normal S1, S2. Irregular rhythm. No audible murmurs. ABDOMEN: Bowel sounds present. Soft, no tenderness. EXTREMITIES: No clubbing, cyanosis or edema. Hyperemia at both feet and tibia. Pulses are intact at the lower extremities. SKIN: No diffuse rash. NEUROLOGIC: No gross focal finding. PSYCHIATRIC: Calm and cooperative. Assessment and Plan - Plan IMPRESSION: 1. Bacteremia. No clear etiology for the bacteremia. One blood culture identified as Staphylococcus coagulase negative. The other 2 bottles a different staph morphologies. This was likely pseudo- bacteremia. 2. Urinary tract infection. Treated. The repeat urinalysis on is unremarkable. 3. Diabetes mellitus. 4. Diarrhea. Patient reports that she gets diarrhea on a frequent basis at home. C. difficile toxin is negative. RECOMMENDATIONS: 1. Stop ertapenem. 2. Okay to discharge today. No antibiotic needed for discharge. Follow-up with primary physician. As far as prophylactic antibiotic to prevent urinary tract infection in this patient is concerned, I do not think it is [place] to do so because she may develop even more resistant UTIs. However she should have an culture performed if she develops any indication of urine infection and based on the culture antibiotics should be given. If she does not have antibiotic resistant organisms on future urine culture Prophylactic antibiotic can be considered.
--- NOTE | 2019-01-04 15:05 | P.DS ---
DS: Providers Date of admission: 12/26/18 22:08 Primary care physician: UNKNOWN Consults: 12/26/18 22:31 HUB Only Consult Order Routine Consulting Provider: Chava Larsen 12/28/18 11:09 Consult to Infectious Diseases Routine Consulting Provider: Floyd Pinedo Reason for Consultation: Bacteremia, complicated UTI. Notified:: Service Spoke with:: HAMZAH Date Notified:: 12/28/18 Time Notified:: 11:15 Ordering Provider: JOSSELIN 01/03/19 13:01 Consult to Urology Routine Consulting Provider: Abad Luke Reason for Consultation: Patient with bladder stimulator and persistent/ recurrent UTI. Resistant organisms. Evaluate for removal of stimulator. Notified:: Office Spoke with:: TISH Date Notified:: 01/03/19 Time Notified:: 13:10 Ordering Provider: MENDOZA DS: Diagnosis Discharge Diagnosis (1) UTI (urinary tract infection): Status: Acute (2) Sepsis: Status: Acute DS: Summary This is an 83-year-old female admitted with acute encephalopathy was found to have urinary tract infection diagnosed with sepsis. Patient recently hospitalized at [facility] where she was treated for urosepsis with Rocephin, has been on 250 mg of Cipro daily for chronic UTI.patient was initially started on Zosyn and vancomycin. Infectious disease was consulted. One blood culture identified Staphylococcus coagulate is negative, there are 2 bottles of different staph morphologies. Likely pseudo-bacteremia per infectious disease. Vancomycin was stopped, continued on Zosyn. Urinalysis was positive, urine culture grew E. coli ESBL, Zosyn was switched to ertapenem. After a few days, leukocytosis improved. Repeat urinalysis was negative. Patient completed treatment with antibiotics. Because of frequent UTIs, urology was consulted for incomplete bladder emptying. Recommendation is to hold Detrol, start Urecholine 3 times a day per urology, renal ultrasound negative post void. Ideally needs intermittent catheterization but patient cannot perform this. Renal ultrasound negative. Urology recommended long-term suppressive antibiotic therapy however recommends long-term suppressive antibiotic therapy, however, this was not recommended by infectious disease because she may develop even more resistant UTIs. Per ID, she needs to be treated when there is a UTI and should be treated based on culture but no prophylaxis. If she does not have any antibiotic resistant organism on urine culture in the future, prophylactic antibiotic can be considered. Her encephalopathy improved with treatment of UTI. She also had mild acute kidney injury which improved with volume resuscitation. She will continue home medications for her chronic medical conditions. She was started on Norvasc because her blood pressure was uncontrolled. Her losartan and lisinopril were stopped. These may be restarted if her kidney function continues to be stable. Time Spent with Patient Total time spent providing and/or coordinating discharge services: Greater than 30 minutes Quality: VTE Deep Vein Thrombosis/Pulmonary Embolism Present on Admission: No Exam Narrative Exam Narrative: Narrative: Not in distress, well-nourished, looks stated age Clear to auscultation and symmetric bilaterally, normal respiratory effort. Normal bowel sounds, soft, non-tender, nondistended, no guarding. Extremities without clubbing, cyanosis, or edema. No rash of generalized distribution. Skin is warm and dry. AAO x3, no cranial nerve deficits, moves all 4 extremities, no focal neurologic deficits Results Labs on day of discharge: Labs from last 24 hours 01/04/19 01/04/19 01/04/19 08:46 08:46 08:19 PT 18.6 H INR 1.8 Sodium 144 Potassium 4.3 Chloride 110 H Carbon Dioxide 26.8 Anion Gap 7 BUN 15 Creatinine 1.02 H Estimated GFR 52 L POC Glucose 101 Random Glucose 108 H Calcium 9.3 01/04/19 01/03/19 01/03/19 03:26 20:16 17:36 PT INR Sodium Potassium Chloride Carbon Dioxide Anion Gap BUN Creatinine Estimated GFR POC Glucose 140 H 282 H 214 H Random Glucose Calcium Impressions ITS Impressions Chest X-Ray 12/26/18 18:36 CONCLUSION: Cardiomegaly with minimal basilar atelectasis or scarring. Venous Doppler Study 12/26/18 19:49 CONCLUSION: No evidence of left lower extremity DVT. Chest CTA 12/26/18 20:28 CONCLUSION: 1. Negative for pulmonary embolic disease. Moderate to severe coronary artery calcifications. No lung consolidation. Minimal basilar atelectasis or scarring. Abdomen/Bladder Ultrasound 01/03/19 00:00 CONCLUSION: 1. Normal renal sonogram. Discharge Plan Discharge Disposition Patient Disposition: Disch W/Home Health Service Discharge Condition Condition: Stable Discharge Order Discharge Orders: Discharge Order (Routine); Ordered 01/04/19 Ordered By: Raisa Choudhury Discharge Details Anticipated Discharge Date: 01/04/19 Physicians Team ED Provider: Lawanda Woodard ED Midlevel Provider: Stewart Carlson Primary Care Provider: DUY, Attending Provider: Raisa Choudhury Other Providers: Chava Larsen ; Floyd Pinedo ; Abad Luke Rxs /Orders / Referrals /Forms Prescriptions: No Action atorvastatin 40 mg Tablet 40 mg PO DAILY RF: 0 metformin 500 mg Tablet 500 mg PO BID RF: 0 alendronate 70 mg Tablet 70 mg PO QWEEK RF: 0 ciprofloxacin HCl 250 mg Tablet 250 mg PO DAILY RF: 0 omeprazole 40 mg Capsule,Delayed Release(Dr/Ec) 40 mg PO DAILY RF: 0 aspirin [Aspir-Low] 81 mg Tablet,Delayed Release (Dr/Ec) 81 mg PO DAILY RF: 0 leflunomide 20 mg Tablet 20 mg PO DAILY RF: 0 warfarin 3 mg Tablet 3 mg PO DAILY RF: 0 temazepam 15 mg Capsule 15 mg PO HS PRN (Reason: Insomnia) RF: 0 gabapentin 800 mg Tablet 800 mg PO BID RF: 0 ferrous sulfate 325 mg (65 mg iron) Tablet 325 mg PO DAILY RF: 0 levothyroxine 150 mcg Tablet 150 mcg PO DAILY RF: 0 losartan 25 mg Tablet 25 mg PO DAILY RF: 0 digoxin 125 mcg Tablet 0.125 mg PO DAILY RF: 0 furosemide 20 mg Tablet 20 mg PO DAILY RF: 0 metoprolol succinate 25 mg Tablet Extended Release 24 Hr 25 mg PO DAILY RF: 0 warfarin 1 mg Tablet 0.5 mg PO DAILY RF: 0 oxybutynin chloride 5 mg Tablet 5 mg PO DAILY RF: 0 cholecalciferol (vitamin D3) [Vitamin D3] 5,000 unit Tablet 5,000 unit PO DAILY RF: 0 prednisone 5 mg Tablet 5 mg PO DAILY RF: 0 ranitidine HCl 150 mg Tablet 150 mg PO DAILY RF: 0 Referrals: UNKNOWN, [Primary Care Provider] - See Instructions Discharge Interventions Interventions: Discharge Planning - Case Management Last Done: 01/02/19 16:39 Status ED Status: Left Department
[2019-01-04 17:36] VITALS: PULSE 84
[2019-01-04 17:41] VITALS: BP 132/64; RESP 19; TEMP 97.9; O2SAT 97
== END 2019-01-04 18:57 | disposition home health service (06) | DRG 871 ==
LOC: NEPC 17:55 → NEDA 22:08 → NEDH 12-27 04:31 → H7ONC 12-27 09:30
PROVIDERS: ADMIT Hospitalist; ATTEND Hospitalist
CPT/HCPCS: 71010; 71045; 71275; 76775; 80048; 80053; 80162; 80202; 81001; 82550; 82565; 82948; 82962; 83520; 83605; 83735; 83880; 84484; 85025; 85027; 85610; 85730; 86403; 87040; 87077; 87086; 87149; 87186; 87205; 87275; 87276; 87493; 87804; 90774; 90784; 93005; 93971; 96374; 97162; 97530; 99285; C8952; C9116; J0696; J1335; J1644; J1815; J1956; J2543; J3370; J7030; J7040; J7050; J7506; J7512; Q9967